=== PATIENT | female | born 1995 | race Caucasian/White ===

== ENCOUNTER 2016-11-06 07:05 | Emergency (ER) | payer BC ==
[2016-11-06 07:18] VITALS: BP 152/73
--- NOTE | 2016-11-06 07:55 | UC ---
Ear Complaint HPI - HPI Summary HPI Summary: Sharp ear pain that started 2 days ago. Pain is constant 6/10 with sharp spikes increasing to 8-9/10. No radiation. No aggravating or alleviating factors. H/o recurrent ear infections as a child. - History of Current Complaint Chief Complaint: UCEar Stated Complaint: EAR ACHE Time Seen by Provider: 11/06/16 07:23 Hx Obtained From: Patient Hx Last Menstrual Period: 5 months ago Onset/Duration: Gradual Onset, Lasting Days - 2, Still Present, Worse Since Severity Initially: Moderate Severity Currently: Moderate Pain Intensity: 6 Aggravating Factors: Nothing Alleviating Factors: Nothing Associated Signs/Symptoms: Positive: Discharge - minimal clear/yellowish, Hearing Loss - slightly muffled - Allergies/Home Medications Allergies/Adverse Reactions: Allergies Allergy/AdvReac Type Severity Reaction Status Date / Time PEANUTS Allergy Mild Rash Uncoded 11/06/16 07:18 Home Medications: Home Medications Levothyroxine TAB* [Synthroid TAB*] 137 mcg PO DAILY 11/06/16 [History Confirmed 11/06/16] Omeprazole CAP* [Prilosec CAP* 20 MG] 20 mg PO BEDTIME 11/06/16 [History Confirmed 11/06/16] Topiramate TAB(*) [Topamax 25 MG tab] 50 mg PO BEDTIME 11/06/16 [History Confirmed 11/06/16] PMH/Surg Hx/FS Hx/Imm Hx - Additional Past Medical History Additional PMH: h/o tricuspid atresia Previously Healthy: Yes Endocrine History: Hypothyroidism - Surgical History Surgical History: Yes Surgery Procedure, Year, and Place: TRICUSPID ATRESIA - Family History Known Family History: Positive: Cardiac Disease, Hypertension - Social History Lives: With Family Alcohol Use: Weekly Substance Use Type: None Smoking Status (MU): Never Smoked Tobacco Review of Systems Constitutional: Negative Skin: Negative Eyes: Negative ENT: Ear Ache Respiratory: Cough - slight occasional Cardiovascular: Negative Gastrointestinal: Negative Musculoskeletal: Negative Neurological: Negative Psychological: Negative All Other Systems Reviewed And Are Negative: Yes Physical Exam Triage Information Reviewed: Yes Appearance: Well-Appearing, No Pain Distress, Obese Vital Signs: Initial Vital Signs Temp 97.6 F 11/06/16 07:10 Pulse 63 11/06/16 07:10 Resp 18 11/06/16 07:10 BP 152/73 11/06/16 07:10 Pulse Ox 98 11/06/16 07:10 Vital Signs Reviewed: Yes Eyes: Positive: Conjunctiva Clear. Negative: Discharge ENT: Positive: Hearing grossly normal, Pharynx normal, TM red, Other: - ear canal is noted to be edematous, erythematous. periorbital congestion, nasal mucosa pale boggy. Negative: Nasal congestion, Nasal drainage, TMs normal - highly scarred, redness noted, TM bulging, TM dull, Tonsillar swelling, Tonsillar exudate, Trismus, Muffled/hoarse voice Neck: Positive: Supple, Nontender, No Lymphadenopathy Respiratory: Positive: Lungs clear, Normal breath sounds, No respiratory distress, No accessory muscle use Cardiovascular: Positive: RRR, No Murmur Musculoskeletal Exam: Normal Neurological: Positive: Alert, Muscle Tone Normal Psychological: Positive: Age Appropriate Behavior Skin Exam: Normal Ear Complaint Course/Dx - Course Course Of Treatment: pt noted to have elevated bp, likely d/t pt's condition - Differential Dx/Diagnosis Differential Diagnosis/HQI/PQRI: Cerumen Impaction, Otitis Externa, Otitis Media , TMJ Syndrome, Trigeminal Nueralgia, URI, Other - serous otitis Provider Diagnoses: otitis extrena, otitis media, elevated bp withou dx of htn Discharge - Discharge Plan Condition: Stable Disposition: HOME Prescriptions: Amoxicillin PO (*) [Amoxicillin 500 MG CAP*] 500 mg PO Q12H #20 cap Ciproflox/Dexameth OTIC.SUSP* [Ciprodex OTIC.SUSP*] 1 drop LEFT EAR BID #1 btl Patient Education Materials: Otitis Externa (ED), Otitis Media (ED) Referrals: Matteo Schaefer MD [Primary Care Provider] - If Needed Additional Instructions: ANTIBIOTICS ARE NOT CURRENTLY INDICATED FOR YOUR CONDITION. HOWEVER, IF YOUR SYMPTOMS WORSEN OR PERSIST FOR OVER THE NEXT 2-3 DAYS, YOU CAN TAKE THE FOLLOWING MEDICATION: AMOXICILLIN: Amoxicillin is a member of the penicillin family. It covers the germs likely to cause ear, bronchial, and urinary infections better than plain penicillin. Amoxicillin can be taken without regard to meals. Nausea after taking the medication is rare, but can occur. Diarrhea can occur, particularly in small children. Vaginal yeast infections and oral thrush in infants are also common. Contact your physician if these problems occur. Allergy to penicillins is common. If you have had an allergic reaction to any drug of the penicillin family, you should never take any other penicillin. Notify your doctor at once if you develop hives, itching, swelling, faintness, or shortness of breath. Less serious side effects can include nausea or diarrhea. ANYTIME YOU TAKE AN ANTIBIOTIC, IT IS IMPORTANT TO REPLENISH THE BODY'S SUPPLY OF "GOOD BACTERIA." YOU CAN GET GOOD BACTERIA FROM HIGH QUALITY CULTURED FOODS SUCH LOCAL YOGURT, SOUR KRAUT, MADELINE BRICE, NATURALLY FERMENTED PICKLES AND PROBIOTIC DRINKS. YOU CAN ALSO GET GOOD BACTERIA FROM A PROBIOTIC SUPPLEMENT.
== END 2016-11-06 07:56 | disposition home or self-care (01) ==
LOC: UCCORT 07:05
DX: H60.90 Unspecified otitis externa, unspecified ear (principal); H66.90 Otitis media, unspecified, unspecified ear; R03.0 Elevated blood-pressure reading, without diagnosis of hypertension; Q22.4 Congenital tricuspid stenosis; E03.9 Hypothyroidism, unspecified; E66.9 Obesity, unspecified
CPT/HCPCS: 99212; G0463

== ENCOUNTER 2017-05-01 10:47 | Emergency (ER) | payer BC ==
[2017-05-01] MEDS ORDERED: Acetaminophen TAB* 325 MG PO ONE (13:18)
--- NOTE | 2017-05-01 13:28 | UC ---
FLU HPI - HPI Summary HPI Summary: since 04/29 evening- body aches, chills, throat pain, congestion, fever. + mild ear pain b/l, + sob with moving, coughing. no N/V. 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 - History of Current Complaint Chief Complaint: UCRespiratory Stated Complaint: FEVER, ACHES, ST, JOE. Time Seen by Provider: 05/01/17 13:10 Hx Obtained From: Patient Hx Last Menstrual Period: last year ?: No - partner with vasectomy Onset/Duration: Sudden Onset, Lasting Days Severity Currently: Moderate Severity Initially: Moderate Pain Intensity: 4 Pain Scale Used: 0-10 Numeric - Allergy/Home Medications Allergies/Adverse Reactions: Allergies Allergy/AdvReac Type Severity Reaction Status Date / Time PEANUTS Allergy Mild Rash Uncoded 05/01/17 13:11 Home Medications: Home Medications Aspirin/Acetaminophen/Caffeine [Excedrin Migraine Caplet] 1 each PO DAILY PRN [History Confirmed 05/01/17] PMH/Surg Hx/FS Hx/Imm Hx Previously Healthy: Yes - Surgical History Surgical History: Yes Surgery Procedure, Year, and Place: TRICUSPID ATRESIA - Family History Known Family History: Positive: Cardiac Disease, Hypertension - Social History Alcohol Use: Weekly Substance Use Type: None Smoking Status (MU): Never Smoked Tobacco Review of Systems Constitutional: Fever, Chills, Fatigue ENT: Sore Throat, Ear Ache, Nasal Discharge, Sinus Congestion Respiratory: Shortness Of Breath, Cough Is Patient Immunocompromised?: No All Other Systems Reviewed And Are Negative: Yes Physical Exam Triage Information Reviewed: Yes Appearance: No Pain Distress, Ill-Appearing - moderate Vital Signs: Initial Vital Signs Temp 103.1 F 05/01/17 13:13 Pulse 103 05/01/17 13:13 Resp 20 05/01/17 13:13 BP 155/98 05/01/17 13:13 Pulse Ox 98 05/01/17 13:13 Eyes: Positive: Conjunctiva Clear ENT: Positive: Pharyngeal erythema - minimal, Nasal congestion, TMs normal, Sinus tenderness - minimal. Negative: TM bulging, TM dull, TM red, Tonsillar swelling, Tonsillar exudate, Uvula midline Neck: Positive: Supple, Nontender, Enlarged Nodes @ - submand mild Respiratory: Positive: Lungs clear, Normal breath sounds, No respiratory distress, No accessory muscle use. Negative: Respiratory distress, Decreased breath sounds, Crackles, Rhonchi, Stridor, Wheezing Cardiovascular: Positive: No Murmur, Pulses Normal, Tachycardia - mild Abdomen Description: Positive: Nontender, No Organomegaly, Soft, Bruit. Negative: CVA Tenderness (R), CVA Tenderness (L) Neurological Exam: Normal Psychological Exam: Normal Flu Course/Dx - Course Course Of Treatment: rapid flu: + infl A. tamiflu, work note, OTC meds. increase lfuids - Differential Dx/Diagnosis Differential Diagnosis/HQI/PQRI: Bronchitis, Influenza, RSV Provider Diagnoses: influenza A Discharge - Discharge Plan Condition: Fair Disposition: HOME Prescriptions: Dextromethorphan/Benzocaine [Cepacol Sorethroat-Cough Corinne] 1 each PO Q6HR #30 lozenge Oseltamivir CAP* [Tamiflu CAP*] 75 mg PO BID #10 cap Patient Education Materials: Influenza (ED) Forms: *Work Release Referrals: Matteo Schaefer MD [Primary Care Provider] - Additional Instructions: - Incrase fluid intake - FOllow up with primary if no decrease in symptoms within 2-3 days - over the counter medication for symptoms- motrin/ tylenol, cough medication - THroat lozenges - Tamiflu as directed
[2017-05-01 13:52] VITALS: BP 147/90
== END 2017-05-01 13:54 | disposition home or self-care (01) ==
LOC: UCCORT 10:47
DX: J10.1 Influenza due to other identified influenza virus with other respiratory manifestations (principal)
CPT/HCPCS: 87502; 99212; A9270-GY; G0463

== ENCOUNTER 2018-06-30 10:42 | Emergency (ER) | payer BC ==
[2018-06-30 10:53] VITALS: BP 167/113
== END 2018-06-30 12:13 | disposition left against medical advice (07) ==
LOC: ED 10:42
DX: Z53.21 Procedure and treatment not carried out due to patient leaving prior to being seen by health care provider (principal)

== ENCOUNTER 2018-08-05 19:57 | Emergency (ER) | payer BC ==
--- OUTSIDE RECORDS SUMMARY | 2018-08-05 21:30 | XMS REPORT | Continuity of Care Document ---
:1995 External Reference #:[id number] Author Name Tre Perez NP Address [address] [place] [address] Care Team Providers Name Role Phone Tre Perez NP Care Team Information Service Director Unavailable Payers Date Identification Numbers Payment Provider Subscriber Policy Number: [id number] [facility] [employer] Group Number: [id number] [address] PayID: [id number] [place] [address] Problems Active Problems Provider Date Hypothyroidism Tre Perez NP Onset: 05/11/2017 Peptic reflux disease Tre Perez NP Onset: 05/11/2017 Family History Date Family Member(s) Observation Comments Father Good Health Mother Good Health First Brother Good Health Second Brother Good Health First Sister Good Health Second Sister Good Health Social History Type Date Description Comments Sex Unknown Marital Status Occupation Nurse ETOH Use Occasionally consumes alcohol Tobacco Use Start: Unknown Patient has never smoked Recreational Drug Use Denies Drug Use Allergies, Adverse Reactions, Alerts Active Allergies Reaction Severity Comments Date Peanuts Contact dermatitis 05/11/2017 Medications Active Medications SIG Qnty Indications Ordering Date Provider Nuvaring as directed 1units Z30.09 Chris, 06/24/2018 MAURO Eddy 0.12-0.015mg/24HR Ring Fluoxetine HCL (PMDD) 1 tabs by mouth 90caps Chris, 04/05/2018 every morning MAURO Eddy 10mg Capsules Levothyroxine Sodium 1 by mouth every 90tabs [facility], 05/11/2017 day MAURO Eddy 137mcg Tablets Omeprazole 1 by mouth twice 60caps [facility], 05/11/2017 20mg Capsules a day MAURO Eddy DR History Medications Out Of Work tomorrow 06/27/18 K21.9 Chris, 06/26/2018 - Misc MAURO Eddy 08/02/2018 Atovaquone-Proguanil 1 take by mouth 18tabs Yessenia, 03/25/2018 - HCL tablet with food Kip Boyce MD 06/24/2018 250-100mg Tablets or milk start 1 day before leaving take every day until back in states 1 week Azithromycin 1 by mouth every 3tabs Yessenia, 03/25/2018 - 500mg day x 3daysprn Kip Boyce MD 06/24/2018 Tablets sevre diarrhea may stop earleir if diarrhea goes away Amoxicillin/Clavulan 1 by mouth twice 20tabs L03.116 Chris, 01/29/2018 - ate Potassium a day MAURO Eddy 01/31/2018 875-125mg Tablets Ra Wart Remover wash affected 9.800ml Chris, 07/03/2017 - 17% area, warm MAURO Eddy 03/25/2018 Solution compress x 5 minutes apply with toothpick to affected areas 2 times a day for 12 weeks Immunizations CPT Code Status Date Vaccine Lot # [id number] Given 03/25/2018 Typhoid Vaccine Live,Oral [id number] 28577 Given 03/25/2018 Hepatitis A Vaccine, Adult Dosage [id number] 35526 Given 01/07/2018 Afluria Or Fluvirin Flu Vac Intramuscular 38859 Given 07/03/2017 Tdap (Boostrix)tetanus, diptheria toxoid & [id number] acellular pertussis 00560 Given 07/03/2017 Gardasil-9 (HPV) Nonavalent 2-3 Dose Schedule Im [id number] 99958 Given 12/18/2016 Afluria Or Fluvirin Flu Vac Intramuscular 67924 Given 07/20/2005 Immunization Td 7 Yrs Or Older [id number] Refused 07/03/2017 Gardasil-9 (HPV) Nonavalent 2-3 Dose Schedule Im Vital Signs Date Vital Result Comment 08/02/2018 2:02pm Body Temperature 97.8 F Weight 266.00 lb Heart Rate 77 /min BP Systolic 128 mmHg BP Diastolic 72 mmHg Respiratory Rate 16 /min Height 63.5 inches 5'3.50" O2 % BldC Oximetry 92 % BMI (Body Mass Index) 46.4 kg/m2 06/26/2018 11:45am Body Temperature 97.6 F Weight 276.00 lb Heart Rate 91 /min BP Systolic 138 mmHg BP Diastolic 82 mmHg Respiratory Rate 18 /min Height 64.4 inches 5'4.40" BMI (Body Mass Index) 46.8 kg/m2 06/24/2018 2:02pm Body Temperature 96.6 F Weight 268.00 lb Heart Rate 60 /min BP Systolic 138 mmHg BP Diastolic 78 mmHg Respiratory Rate 17 /min O2 % BldC Oximetry 93 % 04/05/2018 12:56pm Weight 273.00 lb BP Systolic 198 mmHg BP Diastolic 84 mmHg BP Systolic Recheck 170 mmHg BP Diastolic Recheck 100 mmHg 03/25/2018 11:14am Body Temperature 97.1 F Weight 269.00 lb Heart Rate 73 /min BP Systolic 132 mmHg BP Diastolic 90 mmHg Height 64.25 inches 5'4.25" O2 % BldC Oximetry 95 % BMI (Body Mass Index) 45.8 kg/m2 01/31/2018 11:53am Body Temperature 98.3 F Weight 270.00 lb Heart Rate 56 /min BP Systolic 124 mmHg BP Diastolic 72 mmHg Respiratory Rate 17 /min Height 64 inches 5'4" BMI (Body Mass Index) 46.3 kg/m2 01/29/2018 12:47pm Body Temperature 97.4 F Weight 264.00 lb Heart Rate 63 /min BP Systolic 136 mmHg BP Diastolic 82 mmHg Respiratory Rate 16 /min Height 64 inches 5'4" BMI (Body Mass Index) 45.3 kg/m2 01/14/2018 2:13pm Body Temperature 96.3 F Weight 264.00 lb Heart Rate 76 /min BP Systolic 120 mmHg BP Diastolic 74 mmHg Height 64 inches 5'4" BMI (Body Mass Index) 45.3 kg/m2 08/10/2017 7:58am Body Temperature 97.8 F Weight 260.00 lb Heart Rate 66 /min BP Systolic 130 mmHg BP Diastolic 80 mmHg Height 64.25 inches 5'4.25" O2 % BldC Oximetry 94 % BMI (Body Mass Index) 44.3 kg/m2 07/03/2017 9:44am Body Temperature 98.1 F Weight 254.00 lb Heart Rate 80 /min BP Systolic 128 mmHg BP Diastolic 84 mmHg Height 64.25 inches 5'4.25" O2 % BldC Oximetry 98 % BMI (Body Mass Index) 43.3 kg/m2 Urine Dipstick - Blood NEGATIVE Urine Dipstick - Protein NEGATIVE Urine Dipstick - Glucose NEGATIVE Urine Dipstick - Leukocytes NEGATIVE 05/11/2017 4:07pm Weight 254.00 lb BP Systolic 132 mmHg BP Diastolic 84 mmHg Height 64.25 inches 5'4.25" BMI (Body Mass Index) 43.3 kg/m2 Results Test Date Facility Test Result H/L Range Note Laboratory test 08/02/2018 [facility] Pap-RL <pending> finding Laboratory test 06/24/2018 [facility] TSH 1.66 uIU/mL 0.35-4.94 finding Laboratory test 11/15/2017 [facility] TSH 4.26 uIU/mL 0.35-4.94 finding Hepatitis Prof 07/16/2017 [facility] Hepatitis B S Ag NEGATIVE (Neg) 1 Acute-RL @ Hep. B Core Igm @ NEGATIVE (Neg) Hepatitis A AB Igm @ NEGATIVE (Neg) Hepatitis C AB @ NEGATIVE (Neg) 2 PTH,Intact W/ CA -RL 07/12/2017 [facility] PTH, Intact @ 24.1 pg/mL (12-65 ) Calcium @ 10.5 mg/dL High (8.4-10.2) 3 Hepatic Panel (LFT) 07/12/2017 [facility] Total Protein 8.3 g/dL High 6.0- 8.0 Albumin 5.4 g/dL High 3.6-4.9 Total Bilirubin 1.0 mg/dL 0.1-1.3 Direct Bilirubin 0.2 mg/dL 0.0-0.4 Alkaline Phosphatase 79 U/L 24-140 Alt 112 U/L High 3-42 Ast 65 U/L High 8-42 Laboratory test 07/03/2017 [facility] Pap SEE NOTE 4 finding Laboratory test 07/03/2017 [facility] 5 finding [phone] Allia <SEE NOTE> Affirm 07/03/2017 [facility] Trichomonas Negative Negative Vaginalis Gardnerella Vaginalis Negative Negative Kelly Species Negative Negative GC/Chlamydia By Dna 07/03/2017 [facility] Chlamydia by Dna NEGATIVE Negative Probe Probe GC by Dna Probe NEGATIVE Negative Laboratory test finding 07/03/2017 [facility] Vitamin D 25 28 ng/mL Low 30- 100 6 Hydroxy Iron Panel 07/03/2017 [facility] Iron, Total 147 g/dL 50-170 Transferrin 361.0 mg/dL 203.0-362.0 Tibc (calc) 505 g/dL High 261-478 % Iron Saturation 29.1 % 13.0-45.0 Laboratory test finding 07/03/2017 [facility] Vitamin B12 808 pg/mL 180- 914 Lipid 07/03/2017 [facility] Cholesterol 206 mg/dL High 50-199 Triglycerides 140 mg/dL 30-200 HDL 47 mg/dL 35-85 7 Chol/ HDL Ratio 4.4 ratio 3.7-5.6 VLDL 28 mg/dL 2-29 LDL (Calc) 131 mg/dL High 20-99 8 Comprehensive Met Panel-FCMG 07/03/2017 [facility] Sodium 135 mmol/L 135- 146 9 Potassium 3.8 mmol/L 3.5-5.2 Chloride# 102 mmol/L 97-110 10 Carbon Dioxide 23 mmol/L Low 24-34 Glucose 78 mg/dL 70-105 BUN 9 mg/dL 6-26 Creatinine 0.4 mg/dL Low 0.5-1.4 Calcium 10.5 mg/dL High 8.5-10.2 Total Protein 8.1 g/dL High 6.0-8.0 Albumin 5.3 g/dL High 3.6-4.9 Globulin 2.8 g/dL 2.0-3.5 A/G Ratio 1.9 Ratio 1.0-2.2 Total Bilirubin 1.6 mg/dL High 0.1-1.3 Alkaline Phosphatase 67 U/L 24-140 Alt 162 U/L High 3-42 Ast 127 U/L High 8-42 Keely Egfr >60 >60 11 Non Keely Egfr >60 >60 12 Anion Gap 10 mmol/L 5-15 13 Laboratory test finding 07/03/2017 [facility] TSH 4.26 uIU/mL 0.35-4.94 CBC with Auto Diff-fcmg 07/03/2017 [facility] WBC 8.4 K/uL 4.1-11.0 RBC 4.95 M/uL 4.00-5.40 Hemoglobin 14.9 gm/dL 12.0-16.0 Hematocrit 43.5 % 36.0-47.0 MCV 88.0 fL 80.0-97.0 MCH 30.1 pg 27.0-32.0 MCHC 34.3 g/dL 32.0-36.0 RDW 14.0 % 11.5-14.5 PLT Count 193 K/ul 140-400 MPV 9.5 FL 7.1-10.7 Neutrophil 63.8 % 35.0-75.0 Lymphocyte 28.4 % 16.0-52.0 Monocyte 6.1 % 2.0-10.0 Eosinophil 1.1 % 0.0-5.0 Basophil 0.6 % 0.0-4.0 Abs Neutrophils 5.3 K/uL 2.1-8.0 Abs Lymphocytes 2.4 K/uL 0.8-5.5 Abs Monocytes 0.5 K/uL 0.1-1.0 Abs Eosinophils 0.1 K/uL 0.0-0.5 Abs Basophils 0.1 K/uL 0.0-0.3 Laboratory test finding 05/11/2017 [facility] TSH 1.97 uIU/mL 0.35-4.94 1 Specimen collected at 16:01 on 07/16/17. Specimen received at [facility] Clinical Laboratory on 07/17/17 at 11:29. Specimen received unspun. 2 NOT INFECTED WITH HCV, UNLESS RECENT INFECTION IS SUSPECTED OR OTHER EVIDENCE EXISTS TO INDICATE HCV INFECTION. Unless otherwise specified, testing performed by [facility] [address] [place] [id number] 3 Unless otherwise specified, testing performed by [facility] [address] [address] 4 [facility]. [address] [place] [address] CYTOLOGY REPORT Source of Specimen(s): [facility] Vaginal Pap Smear - One Vial Date of Last Menstrual Period: None Provided Other Clinical Conditions: HPV ASSAY REQUESTED Specimen Adequacy SATISFACTORY FOR EVALUATION PRESENCE OF ENDOCERVICAL/TRANSFORMATION ZONE COMPONENT General Categorization NEGATIVE FOR INTRAEPITHELIAL LESION OR MALIGNANCY Interpretation NEGATIVE FOR INTRAEPITHELIAL LESION OR MALIGNANCY Comment HPV testing will be performed and a separate report will be issued. Reported: 07/05/2017 09:20 Electronically Signed Out By Klely AMARO(ASCP) saúl ICD9 Code: Z01.419 CPT code: A: VC198HCH Unless otherwise specified, testing performed by [facility] [address] [address] 5 [facility] [address] [address] Amplified Molecular High Risk HPV Test Patient Name:RORO TELLO Patient :1995 Ordering Physician:TRE PEREZ [facility] Accession Number [id number] Specimen(s) Received A: High Risk HPV SP Vaginal Pap Smear - One Vial Other Case Numbers: [id number] Diagnosis RISK GROUPS RESULTS High Risk NEGATIVE Tested for HPV Types (16, 18, 31, 33, 35, 39, 45, 51, 52, 56, 58, 59, 66, 68) Comments The performance characteristics of the [facility] residual specimen tested for this assay were validated by [facility] and licensed for use by the [facility]. This test has not been licensed by the FDA and the result is not intended to be used as the sole means for clinical diagnosis or patient management. Negative results do not rule out the presence of disease. Reported: 07/06/2017 07:44 Electronically Signed Out By Altagracia Mclaughlin eng Ilene Darling 6 Clinical Guidelines for recommended serum 25(OH)Vitamin D Deficient at less than 20 ng/mL Insufficient at 20 to <30 ng/mL Sufficient at 30-100 ng/mL Toxicity at greater than 100 ng/mL 7 Per NCEP ATP III Guidelines: Results lower than 40 mg/dL are suggestive of increased risk for coronary artery disease. Results > or=to 60 mg/dL are considered a negative risk factor. 8 Per NCEP ATP III Guidelines: Normal Population <130 Patients with medical conditions: CHD/DM Optimal: <100 Borderline high: 130-159 High: 160-189 Very high: >189 9 Updated reference range on new analyzer 10 Updated reference range on new analyzer 11 Concerning GFR Guidelines for Americans: Normal function or mild renal disease, if clinically at risk: >/=60 mL/min Moderately decreased: 30-59 Severely decreased: 15-29 Renal failure: <15 12 Concerning GFR Guidelines: Normal function or mild renal disease, if clinically at risk: >/=60 mL/min Moderately decreased: 30-59 Severely decreased: 15-29 Renal failure: <15 Glomerular Filtration Rate (GFR) is estimated based on the MDRD equation, which assumes a steady state for creatinine as recommended by the National Kidney Disease Education Program in conjunction with the National Institutes of Health and the National Kidney Foundation. Clinical conditions in which it may be necessary to measure GFR by using clearance methods include extremes of age and body size, severe malnutrition or obesity, diseases of skeletal muscle, paraplegia or quadriplegia, vegetarian diet, rapidly changing kidney function, and calculation of the dose of potentially toxic drugs that are excreted by the kidneys. 13 Updated Reference Range 2-2017 Procedures Date Code Description Status 07/03/2017 [address] Screening Hearing Test Completed Encounters Type Date Location Provider Dx Diagnosis Office Visit 06/26/2018 Tre Moe NP E66.01 Morbid (severe) 11:45a obesity due to excess calories K21.9 Gastro-esophageal reflux disease without esophagitis Z68.42 Body mass index (BMI) 45.0-49.9, adult Office Visit 06/24/2018 2:00p Tre Moe, Z30.09 Encounter for oth BIOMED TECH general coun and advice on contraception E03.9 Hypothyroidism, unspecified Office Visit 04/05/2018 1:00p Tre Moe, F33.1 Major depressive BIOMED TECH disorder, recurrent, moderate Office Visit 01/31/2018 11:45a Tre Moe, S80.912A Unspecified BIOMED TECH superficial injury of LEFT knee, init encntr Z68.42 Body mass index (BMI) 45.0-49.9, adult Office Visit 01/29/2018 12:15p Tre Moe, S81.012A Laceration without BIOMED TECH foreign body, LEFT knee, init encntr L03.116 Cellulitis of LEFT lower limb Z68.42 Body mass index (BMI) 45.0-49.9, adult Office Visit 01/14/2018 2:00p Tre Moe, G47.00 Insomnia, unspecified BIOMED TECH R11.0 Nausea R45.4 Irritability and anger Z68.42 Body mass index (BMI) 45.0-49.9, adult Office Visit 08/10/2017 8:20a Osorio Holt, G47.33 Obstructive sleep MD Alberta Hernandez NP apnea (adult) (pediatric) Office Visit 07/03/2017 9:15a Radha Perez Z00.00 Encntr for general Tre, BIOMED TECH adult medical exam w/o abnormal findings E03.9 Hypothyroidism, unspecified Z13.220 Encounter for screening for lipoid disorders R53.82 Chronic fatigue, unspecified Z68.41 Body mass index (BMI) 40.0-44.9, adult B07.8 Other viral warts Z11.3 Encntr screen for infections w sexl mode of transmiss Z23 Encounter for immunization Office Visit 05/11/2017 4:00p Tre Moe, E03.9 Hypothyroidism, BIOMED TECH unspecified Z13.29 Encounter for screening for oth suspected endocrine disorder
[2018-08-05 21:35] VITALS: BP 156/81
--- NOTE | 2018-08-05 21:49 | UC ---
Complaint Female HPI - HPI Summary HPI Summary: 22-year-old female presents with onset of dysuria yesterday. Today started with some right flank pain. She is also noted some mild vaginal itching. Denies fever, chills, abdominal pain, nausea, vomiting, frequency, urgency, hematuria, vaginal discharge, or abnormal bleeding. - History Of Current Complaint Chief Complaint: UCGU Stated Complaint: BLADDER/URINARY Time Seen by Provider: 08/05/18 21:45 Hx Obtained From: Patient Hx Last Menstrual Period: 07/29/18 Pain Intensity: 4 - Allergies/Home Medications Allergies/Adverse Reactions: Allergies Allergy/AdvReac Type Severity Reaction Status Date / Time PEANUTS Allergy Mild Rash Uncoded 08/05/18 21:35 Home Medications: Home Medications FLUoxetine CAP* [PROzac CAP*] 10 mg PO DAILY 08/05/18 [History Confirmed ] PMH/Surg Hx/FS Hx/Imm Hx Endocrine History: Hypothyroidism GI/ History: Gastroesophageal Reflux Neurological History: Migraine Psychological History: Depression - Surgical History Surgical History: Yes Surgery Procedure, Year, and Place: TRICUSPID ATRESIA - Family History Known Family History: Positive: Cardiac Disease, Hypertension - Social History Occupation: Employed Full-time Lives: With Family Alcohol Use: Rare Substance Use Type: None Smoking Status (MU): Never Smoked Tobacco Review of Systems All Other Systems Reviewed And Are Negative: Yes Constitutional: Negative: Fever, Chills Skin: Negative: Rash Respiratory: Negative: Shortness Of Breath, Cough Cardiovascular: Negative: Palpitations, Chest Pain Gastrointestinal: Negative: Abdominal Pain, Vomiting, Diarrhea, Nausea Genitourinary: Positive: Dysuria, Vaginal/Penile Itching. Negative: Hematuria, Frequency, Urgency, Vaginal/Penile Burning, Vaginal/Penile Discharge, Ulceration /Lesion, Abnormal Bleeding Musculoskeletal: Positive: Negative Neurological: Positive: Negative Is Patient Immunocompromised?: No Physical Exam - Summary Physical Exam Summary: GENERAL APPEARANCE: Well developed, well nourished, alert and cooperative, and appears to be in no acute distress. CARDIAC: Normal S1 and S2. No S3, S4 or murmurs. Rhythm is regular. There is no peripheral edema, cyanosis or pallor. Extremities are warm and well perfused. Capillary refill is less than 2 seconds. Peripheral pulses intact. LUNGS: Clear to auscultation without rales, rhonchi, wheezing or diminished breath sounds. ABDOMEN: Positive bowel sounds. Soft, nondistended, nontender. No guarding or rebound. No masses or hepatosplenomegally. No CVA tenderness. MUSKULOSKELETAL: ROM intact to all extremities. No joint erythema or tenderness. Normal muscular development. Normal gait. SKIN: Skin normal color, texture and turgor with no lesions or eruptions. Triage Information Reviewed: Yes Vital Signs: Initial Vital Signs Temp 97.6 F 08/05/18 21:31 Pulse 92 08/05/18 21:31 Resp 18 08/05/18 21:31 BP 156/81 08/05/18 21:31 Pulse Ox 96 08/05/18 21:31 Vital Signs Reviewed: Yes Complaint Female Dx - Course Course Of Treatment: 22-year-old female presents with onset of dysuria yesterday. Today started with some right flank pain. She is also noted some mild vaginal itching. Denies fever, chills, abdominal pain, nausea, vomiting, frequency, urgency, hematuria, vaginal discharge, or abnormal bleeding. Afebrile. Hypertensive his vital signs stable. The exam was overall unremarkable. [id number] urinalysis showed 2+ protein and 1+ bilirubin and otherwise normal. Urine negative. Urine culture is pending. Discussed results with the patient and offered empiric treatment for UTI pending the urine culture results or waiting for culture results for treating and she has elected for the latter. I will start her on Pyridium 100 mg 3 times a day 2 days to help with the discomfort. First dose was given in the clinic. She is to follow-up with her primary care provider in 3 days if symptoms do not improve. Anticipatory guidance warning symptoms reviewed with the patient. Verbalizes understanding and agrees care. - Differential Dx/Diagnosis Differential Diagnosis/HQI/PQRI: Pelvic Inflammatory Disease, , Renal Colic, Urinary Tract Infection Provider Diagnosis: Dysuria Discharge - Sign-Out/Discharge Documenting (check all that apply): Patient Departure All imaging exams completed and their final reports reviewed: No Studies - Discharge Plan Condition: Stable Disposition: HOME Prescriptions: Phenazopyridine TAB* [Pyridium 100 mg TAB*] 100 mg PO TID #5 tab Patient Education Materials: Dysuria (ED) Referrals: Esther Perez NP [Primary Care Provider] - 3 Days Additional Instructions: Your urine test in the clinic today did not show any evidence of a urinary tract infection. We will send a urine culture today to see what bacteria grow out and then start you on an antibiotic if appropriate. It may take 48-72 hours to get these results. Take Pyridium 1 tablet every 8 hours for next 2 days to help with the discomfort. This medication will turn your urine an orange color. We gave you the first dose in the clinic. Drink plenty of fluids. To help prevent urinary tract infections: 1) Be sure to wipe from front to back. 2) Urinate immediately after any sexual intercourse. 3) Avoid taking bubble baths. Follow up with your primary care provider in 3 days if symptoms persist. Seek immediate medical attention in the emergency room if you develop fever greater than 100.5 F, have severe abdominal pain, persistent vomiting, or any worsening of symptoms. - Billing Disposition and Condition Condition: STABLE Disposition: Home - Attestation Statements Provider Attestation: Per institutional requirements, I have reviewed the chart, however, I was not consulted specifically or made aware of this patient by the midlevel provider. I did not personally evaluate, interact with , or disposition this patient.
[2018-08-05] MEDS ORDERED: Phenazopyridine TAB* 100 MG PO ONE (22:08)
== END 2018-08-05 22:15 | disposition home or self-care (01) ==
LOC: UCCORT 19:57
DX: R30.0 Dysuria (principal); F32.9 Major depressive disorder, single episode, unspecified; Z79.899 Other long term (current) drug therapy
CPT/HCPCS: 81003; 84702; 87086; 99212; A9270-GY; G0463

== ENCOUNTER 2019-02-12 20:11 | Emergency (ER) | payer BC ==
[2019-02-12 21:22] LABS: ABS Basophils 0.1 10^3/ul (0-0.2); ABS Eosinophils 0.1 10^3/ul (0-0.6); ABS Lymphocytes 2.2 10^3/ul (1.0-4.8); ABS Monocytes 0.5 10^3/ul (0-0.8); ABS Neutrophils 4.3 10^3/ul (1.5-7.7); Eosinophil % 1.7 %; Hematocrit 41 % (35-47); Hemoglobin 13.8 g/dL (12.0-16.0); Lymphocyte % 30.9 %; Mean Corpuscular HGB Conc 34 g/dL (31-36); Mean Corpuscular Hemoglobin 30 pg (27-31); Mean Corpuscular Volume 87 fL (80-97); Mean Platelet Volume 8.9 fL (7.4-10.4); Platelet Count 178 10^3/uL (150-450); Red Blood Count 4.66 10^6 /uL (3.70-4.87); Red Cell Distribution Width 15 % (10-15); White Blood Count 7.2 10^3/uL (3.5-10.8)
[2019-02-12 21:39] LABS: Albumin 4.8 g/dL (3.2-5.2); Albumin/Globulin Ratio 1.5 (1-3); Calcium 10.5 mg/dL (8.6-10.3); EGFR African American 181.9 (>60); EGFR Non-African American 150.3 (>60); Globulin 3.3 g/dL (2-4); Magnesium 1.8 mg/dL (1.9-2.7); Potassium 3.9 mmol/L (3.5-5.0); Total Bilirubin 0.6 mg/dL (0.2-1.0); Total Protein 8.1 g/dL (6.4-8.9)
[2019-02-12 21:45] LABS: HCG Pregnancy 1.2 mIU/mL
--- NOTE | 2019-02-12 21:48 | ED ---
Palpitations / Dysrhythmia - HPI Summary HPI Summary: Patient is a 23 year old female who presents with palpitations that started at 20:00 tonight. 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 She put herself on the heart monitor and noticed she was having premature atrial contractions, so she came down to the ED. She also admits to being lightheaded. Has been feeling fatigue for the last couple of days. 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 Follows up yearly with field marketing lead at [place], has appointment in March. no recent travel. not on control. No family history of blood clots. No pain or swelling or calf muscles. - History of Current Complaint Chief Complaint: EDDysrhythmPalp Time Seen by Provider: 02/12/19 20:55 - Allergy/Home Medications Allergies/Adverse Reactions: Allergies Allergy/AdvReac Type Severity Reaction Status Date / Time PEANUTS Allergy Mild Rash Uncoded 02/12/19 20:27 PMH/Surg Hx/FS Hx/Imm Hx Endocrine/Hematology History: Reports: Hx Thyroid Disease - hypo Denies: Hx Diabetes Cardiovascular History: 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 Denies: Hx Hypertension Respiratory History: Denies: Hx Asthma, Hx Chronic Obstructive Pulmonary Disease (COPD) GI History: Denies: Hx Ulcer Neurological History: Reports: Other Neuro Impairments/Disorders - HX OF MIGRAINES - Surgical History Surgery Procedure, Year, and Place: TRICUSPID ATRESIA Infectious Disease History: No Infectious Disease History: Denies: Hx Hepatitis, Hx Human Immunodeficiency Virus (HIV), Traveled Outside the [place] in Last 30 Days - Family History Known Family History: Positive: Cardiac Disease, Hypertension - Social History Alcohol Use: Rare Substance Use Type: Reports: None Smoking Status (MU): Never Smoked Tobacco Review of Systems Constitutional: Negative Eyes: Negative ENT: Negative Positive: Palpitations Positive: Shortness Of Breath Positive: Nausea Genitourinary: Negative Musculoskeletal: Negative Skin: Negative Neurological: Negative Psychological: Normal All Other Systems Reviewed And Are Negative: Yes Physical Exam Triage Information Reviewed: Yes Vital Signs On Initial Exam: Initial Vitals Temp Pulse Resp BP Pulse Ox 98.0 F 90 16 122/74 95 02/12/19 20:15 02/12/19 20:15 02/12/19 20:15 02/12/19 20:15 02/12/19 20:15 Vital Signs Reviewed: Yes Appearance: Positive: Well-Appearing, No Pain Distress, Well-Nourished Skin: Positive: Warm, Skin Color Reflects Adequate Perfusion, Dry Head/Face: Positive: Normal Head/Face Inspection Eyes: Positive: Normal, EOMI, DENNY ENT: Positive: Normal ENT inspection Neck: Positive: Supple, Nontender Respiratory/Lung Sounds: Positive: Clear to Auscultation, Breath Sounds Present Cardiovascular: Positive: Normal, RRR, S1, S2 Abdomen Description: Positive: Nontender, Soft Bowel Sounds: Positive: Present Pelvic Exam: Positive: No Masses Musculoskeletal: Positive: Normal Neurological: Positive: Normal Psychiatric: Positive: Normal, Affect/Mood Appropriate Procedures - Sedation Patient Received Moderate/Deep Sedation with Procedure: No Diagnostics - Vital Signs Vital Signs Temp Pulse Resp BP Pulse Ox 02/12/19 21:04 79 17 200/117 94 02/12/19 21:00 79 21 94 02/12/19 20:15 98.0 F 90 16 122/74 95 - Laboratory Lab Results: Lab Results 02/12/19 02/12/19 Range/Units 21:09 21:10 WBC 7.2 (3.5-10.8) 10^3/uL RBC 4.66 (3.70-4.87) 10^6 /uL Hgb 13.8 (12.0-16.0) g/dL Hct 41 (35-47) % MCV 87 (80-97) fL MCH 30 (27-31) pg MCHC 34 (31-36) g/dL RDW 15 (10-15) % Plt Count 178 (150-450) 10^3/uL MPV 8.9 (7.4-10.4) fL Neut % (Auto) 59.8 % Lymph % (Auto) 30.9 % [place] % (Auto) 6.7 % Eos % (Auto) 1.7 % Baso % (Auto) 0.9 % Absolute Neuts (auto) 4.3 (1.5-7.7) 10^3/ul Absolute Lymphs (auto) 2.2 (1.0-4.8) 10^3/ul Absolute Monos (auto) 0.5 (0-0.8) 10^3/ul Absolute Eos (auto) 0.1 (0-0.6) 10^3/ul Absolute Basos (auto) 0.1 (0-0.2) 10^3/ul Absolute Nucleated RBC 0.0 10^3/ul Nucleated RBC % 0.0 Sodium 136 (135-145) mmol/L Potassium 3.9 (3.5-5.0) mmol/L Chloride 104 (101-111) mmol/L Carbon Dioxide 24 (22-32) mmol/L Anion Gap 8 (2-11) mmol/L BUN 10 (6-24) mg/dL Creatinine 0.50 L (0.51-0.95) mg/dL Est GFR ( Amer) 181.9 (>60) Est GFR (Non-Af Amer) 150.3 (>60) BUN/Creatinine Ratio 20.0 (8-20) Glucose 104 H (70-100) mg/dL Calcium 10.5 H (8.6-10.3) mg/dL Magnesium 1.8 L (1.9-2.7) mg/dL Total Bilirubin 0.60 (0.2-1.0) mg/dL AST 116 H (13-39) U/L ALT 115 H (7-52) U/L Alkaline Phosphatase 77 (34-104) U/L Troponin I 0.00 (<0.03) ng/mL Total Protein 8.1 (6.4-8.9) g/dL Albumin 4.8 (3.2-5.2) g/dL Globulin 3.3 (2-4) g/dL Albumin/Globulin Ratio 1.5 (1-3) Beta HCG, Quant Pending Result Diagrams: 02/12/19 21:09 02/12/19 21:10 Lab Statement: Any lab studies that have been ordered have been reviewed, and results considered in the medical decision making process. - EKG No standard instances Cardiac Rate: NL EKG Rhythm: Sinus Rhythm EKG Comparison: No Significant Change Summary of EKG Findings: sinus rhythm Re-Evaluation - Re-Evaluation First Eval Re-Evaluation Time: 22:34 Change: Improved Comment: feeling better, bp is 135/85 Course/Dx - Course Course Of Treatment: 23 year old female who presnets with new onset of palpitations, SOB, and nausea. History of tricuspid atresia, follows up w cardiology yearly. EKG shows sinus rhythm. strip that patient brought shows PACs. wbc normal. h/h normal. electrolytes normal except for mg of 1.8 which is nonsignificant. bp came down while in ED without meds. will discharge to have follow up with primary. patient understand and agrees with plan. - Diagnoses Differential Diagnosis/HQI/PQRI: Positive: Coronary Artery Disease, Hypokalemia , Panic Disorder Provider Diagnoses: Palpitations Discharge ED - Sign-Out/Discharge Documenting (check all that apply): Patient Departure - Discharge Plan Condition: Good Disposition: HOME Patient Education Materials: Heart Palpitations (ED) Referrals: Odalys Joyce MD [Primary Care Provider] - Additional Instructions: follow up with primary within 5 days Return to ED if develop any new or worsening symptoms - Billing Disposition and Condition Condition: GOOD Disposition: Home
[2019-02-12 22:49] VITALS: BP 135/75
--- OUTSIDE RECORDS SUMMARY | 2019-02-18 14:17 | XMS REPORT | Continuity of Care Document ---
:1995 External Reference #:[id number] Author Name Odalys Joyce MD Address [address] [place] [address] Problems Active Problems Provider Date Hypothyroidism Onset: 02/26/2017 Depressive disorder Onset: 01/22/2015 Social History Type Date Description Comments Sex Unknown Allergies, Adverse Reactions, Alerts Active Allergies Reaction Severity Comments Date Peanut Rash Mild 01/06/2019 Medications Active Medications SIG Qnty Indications Ordering Provider Date Omeprazole oral; take one 90caps Odalys Joyce, 01/13/2018 20mg Capsules capsule by mouth MD WEEKS every day Blood Pressure N/A 1units Unknown 07/06/2016 Kit/Oscillating/Digita l Kit Levothyroxine Sodium 1 daily oral 90tabs Odalys Dunhamt, 01/28/2016 137mcg Tablets Prozac take 1 by mouth 30caps Odalys [place], 10mg Capsules daily Medications Administered in Office Medication SIG Qnty Indications Ordering Provider Date TB Intradermal Test Unknown 04/11/2016 Injection TB Intradermal Test Unknown 04/04/2016 Injection TB Intradermal Test Unknown 10/12/2014 Injection TB Intradermal Test Unknown 10/27/2013 Injection Meningococcal Conjugate Vaccine Unknown 09/17/2013 (Menveo) Injection TB Intradermal Test Unknown 09/17/2013 Injection Immunizations CPT Code Status Date Vaccine Lot # [id number] Given 01/06/2019 Flu < 65 years [id number] 17654 Given 04/04/2016 Influenza Virus Vaccine, Quadrivalent, Split Virus, Im Use 0.5ML 00841 Given 04/04/2016 Flu < 65 years 68484 Given 04/04/2016 Influenza Virus Vaccine, Quadrivalent, Split, Preservative Free 09958 Given 04/04/2016 Flumist 96836 Given 04/04/2016 Flu High Dose 92416 Given 04/04/2016 Influenza Virus Vaccine, Split, Preserv Free, Intradermal Use 95675 Given 03/19/2015 Varicella (Chicken Pox) Vaccine 73922 Given 12/17/2014 Flu High Dose 44696 Given 12/17/2014 Flumist 82128 Given 12/17/2014 Influenza Virus Vaccine, Quadrivalent, Split, Preservative Free 46647 Given 12/17/2014 Flu < 65 years 31982 Given 12/17/2014 Influenza Virus Vaccine, Quadrivalent, Split, Im Use 0.25ML 62650 Given 12/17/2014 Influenza Virus Vaccine, Quadrivalent, Split, Im Use 0.25ML 72131 Given 12/17/2014 Influenza Virus Vaccine, Quadrivalent, Split, Im Use 0.25ML 91259 Given 09/17/2013 HPV Vaccine Type 6,11,16,18 3 Dose Schedule Intramuscular Use 95949 Given 09/17/2013 HPV Gardasil 9 32024 Given 09/17/2013 Tdap - Boostrix/Adacel 74688 Given 09/17/2013 Mening Acwy - Menveo/Menactra 79090 Given 03/24/2013 HPV Gardasil 9 12360 Given 03/24/2013 HPV Gardasil 9 05161 Given 03/24/2013 HPV Vaccine Type 6,11,16,18 3 Dose Schedule Intramuscular Use 51177 Given 11/21/2012 Hep A Adult for >18 yrs Havrix/Vaqta 54060 Given 11/21/2012 HPV Vaccine Type 6,11,16,18 3 Dose Schedule Intramuscular Use 15056 Given 11/21/2012 HPV Gardasil 9 36943 Given 11/21/2012 HPV Gardasil 9 17034 Given 11/21/2012 Typhoid Vaccine Vicps Intramuscular 28862 Given 04/29/2012 Hep A Peds for <19yrs Havrix/Vaqta 42104 Given 04/29/2012 Hep A Adult for >18 yrs Havrix/Vaqta 24706 Given 01/27/2008 Varicella (Chicken Pox) Vaccine 36947 Given 01/27/2008 Influenza Virus Vaccine, Quadrivalent, Split, Im Use 0.25ML 36747 Given 01/27/2008 Influenza Virus Vaccine Split Virus Intramuscular Use 0.5ML 03614 Given 07/20/2005 Mening Acwy - Menveo/Menactra 36498 Given 07/20/2005 Tdap - Boostrix/Adacel 39505 Given 07/20/2005 DTaP for <7yrs Infanrix/Daptacel 51832 Refused 04/29/2012 Influenza Virus Vaccine, Quadrivalent, Split, Im Use 0.25ML Vital Signs Date Vital Result Comment 01/06/2019 2:03pm BP Systolic 138 mmHg BP Diastolic 80 mmHg Height 64.75 inches 5'4.75" Weight 284.00 lb Heart Rate 93 /min Body Temperature 97.6 F O2 % BldC Oximetry 95 % BMI (Body Mass Index) 47.6 kg/m2 Results Test Acquired Date Facility Test Result H/L Range Note CBC Auto 02/12/2019 [facility] White Blood 7.2 10^3/uL Normal 3.5-10.[address] [place] [address] [phone] Red Blood Count 4.66 10^6/uL Normal 3.70-4.87 Hemoglobin 13.8 g/dL Normal 12.0-16.0 Hematocrit 41 % Normal 35-47 Mean Corpuscular Volume 87 fL Normal 80-97 Mean Corpuscular Hemoglobin 30 pg Normal 27-31 Mean Corpuscular HGB Conc 34 g/dL Normal 31-36 Red Cell Distribution Width 15 % Normal 10-15 Platelet Count 178 10^3/uL Normal 150-450 Mean Platelet Volume 8.9 fL Normal 7.4-10.4 Abs Neutrophils 4.3 10^3/uL Normal 1.5-7.7 Abs Lymphocytes 2.2 10^3/uL Normal 1.0-4.8 Abs Monocytes 0.5 10^3/uL Normal 0-0.8 Abs Eosinophils 0.1 10^3/uL Normal 0-0.6 Abs Basophils 0.1 10^3/uL Normal 0-0.2 Abs Nucleated RBC 0.0 10^3/uL Granulocyte % 59.8 % Lymphocyte % 30.9 % Monocyte % 6.7 % Eosinophil % 1.7 % Basophil % 0.9 % Nucleated Red Blood Cells % 0.0 Comp Metabolic 02/12/2019 [facility] Sodium 136 mmol/L Normal 135-[address] [place] [address] [phone] Potassium 3.9 mmol/L Normal 3.5-5.0 Chloride 104 mmol/L Normal 101-111 Co2 Carbon Dioxide 24 mmol/L Normal 22-32 Anion Gap 8 mmol/L Normal 2-11 Glucose 104 mg/dL High 70-100 Blood Urea Nitrogen 10 mg/dL Normal 6-24 Creatinine 0.50 mg/dL Low 0.51-0.95 BUN/Creatinine Ratio 20.0 Normal 8-20 Calcium 10.5 mg/dL High 8.6-10.3 Total Protein 8.1 g/dL Normal 6.4-8.9 Albumin 4.8 g/dL Normal 3.2-5.2 Globulin 3.3 g/dL Normal 2-4 Albumin/Globulin Ratio 1.5 Normal 1-3 Total Bilirubin 0.60 mg/dL Normal 0.2-1.0 Alkaline Phosphatase 77 U/L Normal 34-104 Alt 115 U/L High 7-52 Ast 116 U/L High 13-39 Egfr Non- 150.3 >60 Egfr 181.9 >60 1 Laboratory test 02/12/2019 [facility] Magnesium 1.8 mg/dL Low 1.9-2.[address] [place] [address] [phone] Troponin-I (TnI) 0.00 ng/mL <0.03 2 HCG 1.20 mIU/mL 3 Lactic Acid 1.5 mmol/L Normal 0.5-2.0 4 Laboratory 02/12/2019 [facility] Point of Care 97 mg/dL Normal 70-100 5 test finding [address] [place] [address] [phone] Laboratory 01/21/2019 [facility] TSH (Thyroid 0.63 Normal 0.34 -5.60 test finding [address] Stim Horm) mcIU/[place] [address] [phone] Lipid Profile 01/21/2019 [facility] Triglycerides 213 6 (Trig/Chol/HDL [address] mg/dL ) [place], [place] [id number] [phone] Cholesterol 206 mg/dL 7 HDL Cholesterol 36.9 mg/dL 8 LDL Cholesterol 127 mg/dL 9 Basic Metabolic 01/21/2019 [facility] Sodium 137 mmol/L Normal 135-[address] [place] [address] [phone] Potassium 4.3 mmol/L Normal 3.5-5.0 Chloride 105 mmol/L Normal 101-111 Co2 Carbon Dioxide 25 mmol/L Normal 22-32 Anion Gap 7 mmol/L Normal 2-11 Glucose 85 mg/dL Normal 70-100 Blood Urea Nitrogen 7 mg/dL Normal 6-24 Creatinine 0.46 mg/dL Low 0.51-0.95 BUN/Creatinine Ratio 15.2 Normal 8-20 Calcium 9.9 mg/dL Normal 8.6-10.3 Egfr Non- 165.5 >60 Egfr 200.3 >60 10 1 Because ethnic data is not always readily available, this report includes an eGFR for both -Americans and non- Americans. The National Kidney Disease Education Program (NKDEP) does not endorse the use of the MDRD equation for patients that are not between the ages of 18 and 70, are , have extremes of body size, muscle mass, or nutritional status, or are non- or non-. According to the National Kidney Foundation, irrespective of diagnosis, the stage of the disease is based on the level of kidney function: Stage Description GFR(mL/min/1.73 m(2)) 1 Kidney damage with normal or decreased GFR 90 2 Kidney damage with mild decrease in GFR 60-89 3 Moderate decrease in GFR 30-59 4 Severe decrease in GFR 15-29 5 Kidney failure <15 (or dialysis) 2 Troponin-I testing on Plasma Separator Tubes (PST) has a known false positive rate of 0.20-0.40%. All positive troponins reflex immediately to secondary confirmatory testing. Using the Cortex DxI 800 Access Immunoassay systems, the 99th percentile upper reference limit was demonstrated to be < 0.03 ng/mL. 3 <5.0 Negative 5.0 - 25.0 Indeterminate (Repeat testing recommended after 72 hours) >25.0 Positive Perimenopausal women can display HCG levels of up to 20 mIU/mL 4 [facility] Severe Sepsis and Septic Shock Management Bundle Measure requires all lactic acids initially measuring >2.0 mmol/L be repeated. 5 Curriculum Supervisor: [id number] 6 Desirable: <150 Borderline High: 150-199 High: 200-499 Very High: >500 7 Desirable: <200 Borderline High: 200-239 High: >239 8 Low: <40 Desirable: 40-60 High: >60 9 Desirable: <100 Near Optimal: 100-129 Borderline High: 130-159 High: 160-189 Very High: >189 10 Because ethnic data is not always readily available, this report includes an eGFR for both -Americans and non- Americans. The National Kidney Disease Education Program (NKDEP) does not endorse the use of the MDRD equation for patients that are not between the ages of 18 and 70, are , have extremes of body size, muscle mass, or nutritional status, or are non- or non-. According to the National Kidney Foundation, irrespective of diagnosis, the stage of the disease is based on the level of kidney function: Stage Description GFR(mL/min/1.73 m(2)) 1 Kidney damage with normal or decreased GFR 90 2 Kidney damage with mild decrease in GFR 60-89 3 Moderate decrease in GFR 30-59 4 Severe decrease in GFR 15-29 5 Kidney failure <15 (or dialysis) Procedures Date Code Description Status 01/06/2019 94077 Brief Emotional/Behav Assessment W/ Scoring Doc Per Completed Standard Inst Medical Devices Description No Information Available Encounters Type Date Location Provider Dx Diagnosis Office Visit 01/06/2019 2:00p [facility] Odalys Joyce MD M25.562 Pain in left knee E03.9 Hypothyroidism, unspecified Z00.00 Encntr for general adult medical exam w/o abnormal findings Z13.220 Encounter for screening for lipoid disorders Z13.1 Encounter for screening for diabetes mellitus Z13.31 Encounter for screening for depression Z68.42 Body mass index (BMI) 45.0-49.9, adult Z23 Encounter for immunization Assessments Date Code Description Provider 01/06/2019 M25.562 Pain in left knee Odalys Joyce MD 01/06/2019 E03.9 Hypothyroidism, unspecified Odalys Joyce MD 01/06/2019 Z00.00 Encounter for general adult medical examination Odalys Joyce MD without abnormal findings 01/06/2019 Z13.220 Encounter for screening for lipoid disorders Odalys Joyce MD 01/06/2019 Z13.1 Encounter for screening for diabetes mellitus Odalys Joyce MD 01/06/2019 Z13.31 Encounter for screening for depression Odalys Joyce MD 01/06/2019 Z68.42 Body mass index (BMI) 45.0-49.9, adult Odalys Joyce MD 01/06/2019 Z23 Encounter for immunization Odalys Joyce MD Plan of Treatment 01/06/2019 - Odalys Joyce, MDM25.562 Pain in left kneeNew Orders:Physical Therapy Evaluate And Treat, Ordered: 01/06/19E03.9 Hypothyroidism, [id number] Encounter for general adult medical examination without abnormal aosqlxivK10.220 Encounter for screening for lipoid qqhgnlhlxO81.1 Encounter for screening for diabetes ownzoxqiZ14.31 Encounter for screening for aeponluamcJ02.42 Body mass index (BMI) 45.0-49.9, [id number] Encounter for immunization Functional Status Description No Information Available Mental Status Description No Information Available Referrals Description No Information Available
--- OUTSIDE RECORDS SUMMARY | 2019-02-18 14:17 | XMS REPORT | Continuity of Care Document ---
:1995 External Reference #:[id number] Author Name Odalys Joyce MD Address [address] [place] [address] Problems Active Problems Provider Date Hypothyroidism Onset: 02/26/2017 Depressive disorder Onset: 01/22/2015 Social History Type Date Description Comments Sex Unknown Allergies, Adverse Reactions, Alerts Active Allergies Reaction Severity Comments Date Peanut Rash Mild 01/06/2019 Medications Active Medications SIG Qnty Indications Ordering Provider Date Omeprazole Oral; Take One 30caps Unknown 01/13/2018 20mg Capsules Capsule By Mouth DR Every Day Blood Pressure N/A 1units Unknown 07/06/2016 Kit/Oscillating/Digita l Kit Levothyroxine Sodium 1 Daily Oral 90tabs Unknown 01/28/2016 137mcg Tablets Prozac Unknown Medications Administered in Office Medication SIG Qnty Indications Ordering Provider Date TB Intradermal Test Unknown 04/11/2016 Injection TB Intradermal Test Unknown 04/04/2016 Injection TB Intradermal Test Unknown 10/12/2014 Injection TB Intradermal Test Unknown 10/27/2013 Injection Meningococcal Conjugate Vaccine Unknown 09/17/2013 (Menveo) Injection TB Intradermal Test Unknown 09/17/2013 Injection Immunizations CPT Code Status Date Vaccine Lot # [id number] Given 01/06/2019 Flu < 65 years [id number] 31234 Given 04/04/2016 Influenza Virus Vaccine, Quadrivalent, Split Virus, Im Use 0.5ML 25959 Given 04/04/2016 Flu < 65 years 23494 Given 04/04/2016 Influenza Virus Vaccine, Quadrivalent, Split, Preservative Free 89266 Given 04/04/2016 Flumist 24354 Given 04/04/2016 Flu High Dose 95849 Given 04/04/2016 Influenza Virus Vaccine, Split, Preserv Free, Intradermal Use 37280 Given 03/19/2015 Varicella (Chicken Pox) Vaccine 17939 Given 12/17/2014 Flu High Dose 69607 Given 12/17/2014 Flumist 54827 Given 12/17/2014 Influenza Virus Vaccine, Quadrivalent, Split, Preservative Free 73565 Given 12/17/2014 Flu < 65 years 18042 Given 12/17/2014 Influenza Virus Vaccine, Quadrivalent, Split, Im Use 0.25ML 13329 Given 12/17/2014 Influenza Virus Vaccine, Quadrivalent, Split, Im Use 0.25ML 70569 Given 12/17/2014 Influenza Virus Vaccine, Quadrivalent, Split, Im Use 0.25ML 98315 Given 09/17/2013 HPV Vaccine Type 6,11,16,18 3 Dose Schedule Intramuscular Use 50009 Given 09/17/2013 HPV Gardasil 9 00279 Given 09/17/2013 Tdap - Boostrix/Adacel 18641 Given 09/17/2013 Mening Acwy - Menveo/Menactra 70738 Given 03/24/2013 HPV Gardasil 9 03043 Given 03/24/2013 HPV Gardasil 9 89052 Given 03/24/2013 HPV Vaccine Type 6,11,16,18 3 Dose Schedule Intramuscular Use 56993 Given 11/21/2012 Hep A Adult for >18 yrs Havrix/Vaqta 47676 Given 11/21/2012 HPV Vaccine Type 6,11,16,18 3 Dose Schedule Intramuscular Use 34327 Given 11/21/2012 HPV Gardasil 9 69142 Given 11/21/2012 HPV Gardasil 9 28755 Given 11/21/2012 Typhoid Vaccine Vicps Intramuscular 80787 Given 04/29/2012 Hep A Peds for <19yrs Havrix/Vaqta 49461 Given 04/29/2012 Hep A Adult for >18 yrs Havrix/Vaqta 26595 Given 01/27/2008 Varicella (Chicken Pox) Vaccine 47378 Given 01/27/2008 Influenza Virus Vaccine, Quadrivalent, Split, Im Use 0.25ML 30360 Given 01/27/2008 Influenza Virus Vaccine Split Virus Intramuscular Use 0.5ML 29915 Given 07/20/2005 Mening Acwy - Menveo/Menactra 80278 Given 07/20/2005 Tdap - Boostrix/Adacel 57754 Given 07/20/2005 DTaP for <7yrs Infanrix/Daptacel 95995 Refused 04/29/2012 Influenza Virus Vaccine, Quadrivalent, Split, Im Use 0.25ML Vital Signs Date Vital Result Comment 01/06/2019 2:03pm BP Systolic 138 mmHg BP Diastolic 80 mmHg Height 64.75 inches 5'4.75" Weight 284.00 lb Heart Rate 93 /min Body Temperature 97.6 F O2 % BldC Oximetry 95 % BMI (Body Mass Index) 47.6 kg/m2 Results Description No Information Available Procedures Date Code Description Status 01/06/2019 97106 Brief Emotional/Behav Assessment W/ Scoring Doc Per Completed Standard Inst Medical Devices Description No Information Available Encounters Description No Information Available Assessments Date Code Description Provider 01/06/2019 M25.562 Pain in left knee Odalys Joyce MD 01/06/2019 E03.9 Hypothyroidism, unspecified Odalys Joyce MD 01/06/2019 Z00.00 Encounter for general adult medical examination Odalys Joyce MD without abnormal findings 01/06/2019 Z13.220 Encounter for screening for lipoid disorders Odalys Joyce MD 01/06/2019 Z13.1 Encounter for screening for diabetes mellitus Odalys Joyce MD 01/06/2019 Z68.42 Body mass index (BMI) 45.0-49.9, adult Odalys Joyce MD Plan of Treatment 01/06/2019 - Odalys Joyce MDM25.562 Pain in left kneeNew Orders:Physical Therapy Evaluate And Treat, Ordered: 01/06/19E03.9 Hypothyroidism, unspecifiedNew Labs:TSH (Thyroid Stim Horm), Ordered: 01/06/19Z00.00 Encounter for general adult medical examination without abnormal caebletkY91.220 Encounter for screening for lipoid disordersNew Labs:Lipid Profile (Trig/Chol/ HDL), Ordered: 01/06/19Z13.1 Encounter for screening for diabetes mellitusNew Labs:Basic Metabolic Panel, Ordered: 01/06/19Z68.42 Body mass index (BMI) 45.0- 49.9, adult Functional Status Description No Information Available Mental Status Description No Information Available Referrals Description No Information Available
== END 2019-02-12 22:35 | disposition home or self-care (01) ==
LOC: ED 20:11
DX: R00.2 Palpitations (principal); E03.9 Hypothyroidism, unspecified; Q24.5 Malformation of coronary vessels
CPT/HCPCS: 36415; 80053; 83605; 83735; 84484; 84702; 85025; 93005; 99283

== ENCOUNTER 2019-05-05 17:10 | Emergency (ER) | payer BC ==
--- NOTE | 2019-05-05 17:32 | ED ---
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 Patient reports seeing today who suggested that she report to [facility] for a full work up. The patient rates the pain 5/10 in severity. Symptoms aggravated by movement. Symptoms alleviated by nothing. - History Of Current Complaint Chief Complaint: EDAbdPain Time Seen by Provider: 05/05/19 17:24 Hx Obtained From: Patient Onset/Duration: Lasting Hours, Still Present Timing: Constant Character: Sharp - "stabbing" pains during breaths Aggravating Factor(s): movement Alleviating Factor(s): nothing Associated Signs And Symptoms: Positive: Abdominal Pain - RUQ, Other - Pain in diaphragm area when breathing - Allergies/Home Medications Allergies/Adverse Reactions: Allergies Allergy/AdvReac Type Severity Reaction Status Date / Time peanut Allergy Mild Rash Verified 05/05/19 17:16 PMH/Surg Hx/FS Hx/Imm Hx Endocrine/Hematology History: Reports: Hx Thyroid Disease - hypo Denies: Hx Diabetes Cardiovascular History: 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 Denies: Hx Hypertension Respiratory History: Denies: Hx Asthma, Hx Chronic Obstructive Pulmonary Disease (COPD) GI History: Reports: Hx Gastroesophageal Reflux Disease Denies: Hx Ulcer History: Denies: Hx Dialysis Sensory History: Denies: Hx Contacts or Glasses, Hx Eye Prosthesis, Hx Legally Blind, Hx Deafness, Hx Hearing Aid Opthamlomology History: Denies: Hx Contacts or Glasses, Hx Eye Prosthesis, Hx Legally Blind Neurological History: Reports: Hx Migraine, Other Neuro Impairments/Disorders - HX OF MIGRAINES Psychiatric History: Reports: Hx Depression - Surgical History Surgical History: Yes Surgery Procedure, Year, and Place: TRICUSPID ATRESIA. Gallbladder surgery, 2019, Infectious Disease History: No Infectious Disease History: Denies: Hx Hepatitis, Hx Human Immunodeficiency Virus (HIV), Traveled Outside the [place] in Last 30 Days - Family History Known Family History: Positive: Cardiac Disease, Hypertension - Social History Alcohol Use: Rare Substance Use Type: Reports: None Substance Use Comment - Amount & Last Used: rarely Smoking Status (MU): Never Smoked Tobacco Review of Systems Negative: Fever Musculoskeletal: Other - Pain in RUQ and diaphgram area upon movement and breathing respectively All Other Systems Reviewed And Are Negative: Yes Physical Exam - Summary Physical Exam Summary: Appearance: The patient is well-nourished in no acute distress and in no acute pain. Skin: The skin is warm and dry, and skin color reflects adequate perfusion. HEENT: The head is normocephalic and atraumatic. The pupils are equal and reactive. The conjunctivae are clear and without drainage. Nares are patent and without drainage. Mouth reveals moist mucous membranes, and the throat is without erythema and exudate. The external ears are intact. The ear canals are patent and without drainage. The tympanic membranes are intact. Neck: The neck is supple with full range of motion and non-tender. There are no carotid bruits. There is no neck vein distension. Respiratory: Chest is non-tender. Lungs are clear to auscultation and breath sounds are symmetrical and equal. Cardiovascular: Heart is regular rate and rhythm. There is no murmur or rub auscultated. There is no peripheral edema and pulses are symmetrical and equal. Abdomen: Tender in RUQ. Musculoskeletal: There is no back tenderness noted. Extremities are non-tender with full range of motion. There is good capillary refill. There is no peripheral edema or calf tenderness elicited. Neurological: Patient is alert and oriented to person, place and time. The patient has symmetrical motor strength in all four extremities. Cranial nerves are grossly intact. Deep tendon reflexes are symmetrical and equal in all four extremities. Psychiatric: The patient has an appropriate affect and does not exhibit any anxiety or depression. Triage Information Reviewed: Yes Vital Signs On Initial Exam: Initial Vitals Temp Pulse Resp BP Pulse Ox 97.7 F 84 19 155/104 94 05/05/19 17:13 05/05/19 17:13 05/05/19 17:13 05/05/19 17:13 05/05/19 17:13 Vital Signs Reviewed: Yes Procedures - Sedation Patient Received Moderate/Deep Sedation with Procedure: No Diagnostics - Vital Signs Vital Signs Temp Pulse Resp BP Pulse Ox 05/05/19 17: 97.7 F 84 19 155/104 94 - Laboratory Result Diagrams: 05/05/19 18:02 05/05/19 18:02 Lab Statement: Any lab studies that have been ordered have been reviewed, and results considered in the medical decision making process. - Ultrasound US Abd Ultrasound Interpretation Completed By: Radiologist Summary of Ultrasound Findings: IMPRESSION: Status post cholecystectomy. No acute process seen. has reviewed this report. Complex Multi-Symp Course/Dx Course Of Treatment: We are awaiting labs and CT to R/O any post op infection etc. - Diagnoses Provider Diagnoses: Post-operative pain Discharge ED - Sign-Out/Discharge Documenting (check all that apply): Sign-Out Patient - Sign out patient to at 05/05/2019 1900 pending consult and disposition. Signing out patient TO: Jefferson Araya - Discharge Plan Condition: Good Disposition: HOME Patient Education Materials: Acute Abdominal Pain (ED) Forms: *Work Release Referrals: Odalys Joyce MD [Primary Care Provider] - - Billing Disposition and Condition Condition: GOOD Disposition: Home - Attestation Statements Document Initiated by Scribe: No
--- OUTSIDE RECORDS SUMMARY | 2019-05-05 17:44 | XMS REPORT | Continuity of Care Document ---
:1993 External Reference #:[id number] Author Name Matteo Schaefer MD Address [address] [place] [id number] Problems Active Problems Provider Date Hypothyroidism Onset: 02/26/2017 Depressive disorder Onset: 01/22/2015 Social History Type Date Description Comments Sex Unknown Tobacco Use Start: Unknown Patient has never smoked Smoking Status Reviewed: 04/15/19 Patient has never smoked Allergies, Adverse Reactions, Alerts Active Allergies Reaction Severity Comments Date Peanut Rash Mild 01/06/2019 Medications Active Medications SIG Qnty Indications Ordering Provider Date Prozac 1 tab daily by 30adryan R00.2 NEPTALI Ca 02/20/2019 20mg Capsules mouth Omeprazole oral; take one 90caps Odalys Chamberlainholt, 01/13/2018 20mg Capsules capsule by mouth MD WEEKS every day Levothyroxine Sodium 1 daily oral 90tabs Odalys Joyce, 01/28/2016 137mcg Tablets Medications Administered in Office Medication SIG Qnty Indications Ordering Provider Date TB Intradermal Test Unknown 04/11/2016 Injection TB Intradermal Test Unknown 04/04/2016 Injection TB Intradermal Test Unknown 10/12/2014 Injection TB Intradermal Test Unknown 10/27/2013 Injection TB Intradermal Test Unknown 09/17/2013 Injection Immunizations CPT Code Status Date Vaccine Lot # [id number] Given 01/06/2019 Flu < 65 years [id number] 65343 Given 04/04/2016 Flu < 65 years 81221 Given 03/19/2015 Varicella (Chicken Pox) Vaccine 16834 Given 12/17/2014 Flu < 65 years 85643 Given 09/17/2013 Mening Acwy - Menveo/Menactra 78887 Given 09/17/2013 Tdap - Boostrix/Adacel 15510 Given 09/17/2013 HPV Vaccine Type 6,11,16,18 3 Dose Schedule Intramuscular Use 46746 Given 03/24/2013 HPV Vaccine Type 6,11,16,18 3 Dose Schedule Intramuscular Use 75149 Given 11/21/2012 Hep A Adult for >18 yrs Havrix/Vaqta 89665 Given 11/21/2012 HPV Vaccine Type 6,11,16,18 3 Dose Schedule Intramuscular Use 56029 Given 11/21/2012 Typhoid Vaccine Vicps Intramuscular 98338 Given 04/29/2012 Hep A Adult for >18 yrs Havrix/Vaqta 78882 Given 01/27/2008 Varicella (Chicken Pox) Vaccine 48191 Given 07/20/2005 Mening Acwy - Menveo/Menactra 01552 Given 07/20/2005 Tdap - Boostrix/Adacel 99876 Given 07/20/2005 DTaP for <7yrs Infanrix/Daptacel 52178 Refused 04/29/2012 Influenza Virus Vaccine, Quadrivalent, Split, Im Use 0.25ML Vital Signs Date Vital Result Comment 04/15/2019 2:58pm BP Systolic 140 mmHg BP Diastolic 84 mmHg Height 64.75 inches 5'4.75" Weight 172.00 lb Heart Rate 81 /min Body Temperature 97.7 F O2 % BldC Oximetry 94 % BMI (Body Mass Index) 28.8 kg/m2 03/26/2019 9:29am BP Systolic 116 mmHg BP Diastolic 88 mmHg Weight 280.00 lb Heart Rate 84 /min Body Temperature 97.1 F O2 % BldC Oximetry 94 % Results Test Acquired Date Facility Test Result H/L Range Note Urinalysis Profile 04/15/2019 [facility] Urine Color Yellow [address] [place] [address] [phone] Urine Appearance Clear Urine Specific [place] 1.014 Normal 1.010-1.030 Urine pH 5.0 Normal 5-9 Urine Urobilinogen Negative Negative Urine Ketones Trace Abnormal Negative Urine Protein 1+(30 mg/dL) Abnormal Negative Urine Leukocytes Negative Negative Urine Blood Negative Negative Urine Nitrite Negative Negative Urine Bilirubin Negative Negative Urine Glucose Negative Negative Urine White Blood Cell Trace(0-5/hpf) Absent Urine Red Blood Cell Absent Absent Urine Bacteria Absent Absent Urine Squamous Epithelial Cell Present Abnormal Absent CBC Auto 04/15/2019 [facility] White Blood 7.5 10^3/uL Normal 3.5-10.[address] [place] [address] [phone] Red Blood Count 5.02 10^6/uL High 3.70-4.87 Hemoglobin 15.2 g/dL Normal 12.0-16.0 Hematocrit 44 % Normal 35-47 Mean Corpuscular Volume 87 fL Normal 80-97 Mean Corpuscular Hemoglobin 30 pg Normal 27-31 Mean Corpuscular HGB Conc 35 g/dL Normal 31-36 Red Cell Distribution Width 15 % Normal 10-15 Platelet Count 200 10^3/uL Normal 150-450 Mean Platelet Volume 8.7 fL Normal 7.4-10.4 Abs Neutrophils 5.1 10^3/uL Normal 1.5-7.7 Abs Lymphocytes 1.8 10^3/uL Normal 1.0-4.8 Abs Monocytes 0.4 10^3/uL Normal 0-0.8 Abs Eosinophils 0.1 10^3/uL Normal 0-0.6 Abs Basophils 0.1 10^3/uL Normal 0-0.2 Abs Nucleated RBC 0.0 10^3/uL Granulocyte % 68.2 % Lymphocyte % 24.2 % Monocyte % 5.6 % Eosinophil % 0.9 % Basophil % 1.1 % Nucleated Red Blood Cells % 0.1 Laboratory test 04/15/2019 [facility] Lactic Acid 1.0 mmol/L Normal 0.5-2.[address] [place] [address] [phone] Comp Metabolic 04/15/2019 [facility] Sodium 135 mmol/L Normal 135-145 Panel [address] [place] [address] [phone] Potassium 4.0 mmol/L Normal 3.5-5.0 Chloride 102 mmol/L Normal 101-111 Co2 Carbon Dioxide 22 mmol/L Normal 22-32 Anion Gap 11 mmol/L Normal 2-11 Glucose 101 mg/dL High 70-100 Blood Urea Nitrogen 9 mg/dL Normal 6-24 Creatinine 0.56 mg/dL Normal 0.51-0.95 BUN/Creatinine Ratio 16.1 Normal 8-20 Calcium 10.3 mg/dL Normal 8.6-10.3 Total Protein 8.6 g/dL Normal 6.4-8.9 Albumin 4.8 g/dL Normal 3.2-5.2 Globulin 3.8 g/dL Normal 2-4 Albumin/Globulin Ratio 1.3 Normal 1-3 Total Bilirubin 1.40 mg/dL High 0.2-1.0 Alkaline Phosphatase 83 U/L Normal 34-104 Alt 78 U/L High 7-52 Ast 78 U/L High 13-39 Egfr Non- 131.9 >60 Egfr 159.6 >60 2 Laboratory test 04/15/2019 [facility] Lipase 11 U/L Normal 11.0-82.[address] [place] [address] [phone] C Reactive Protein 12.48 mg/L High <8.01 HCG 0.82 mIU/mL 3 CBC Auto 02/12/2019 [facility] White Blood 7.2 10^3/uL Normal 3.5-10.[address] [place] [address] [phone] Red Blood Count 4.66 10^6/uL Normal 3.70-4.87 [...] Blood Cells % 0.0 Comp Metabolic 02/12/2019 [facility] Sodium 136 mmol/L Normal 135-[address] [place] [address] [phone] Potassium 3.9 mmol/L Normal 3.5-5.0 Chloride 104 [...] Egfr Non- 150.3 >60 Egfr 181.9 >60 4 Laboratory test 02/12/2019 [facility] Magnesium 1.8 mg/dL Low 1.9-2.[address] [place] [address] [phone] Troponin-I (TnI) 0.00 ng/mL <0.03 5 HCG 1.20 mIU/mL 6 Lactic Acid 1.5 mmol/L Normal 0.5-2.0 7 Laboratory 02/12/2019 [facility] Point of Care 97 mg/dL Normal 70-100 8 test finding [address] [place] [address] [phone] Laboratory 01/21/2019 [facility] TSH (Thyroid 0.63 Normal 0.34 -5.60 test finding [address] Stim Horm) mcIU/mL [place], [place] [id number] [phone] Lipid Profile 01/21/2019 [facility] Triglycerides 213 9 (Trig/Chol/HDL [address] mg/dL ) [place], [place] [id number] [phone] Cholesterol 206 mg/dL 10 HDL Cholesterol 36.9 mg/dL 11 LDL Cholesterol 127 mg/dL 12 Basic Metabolic 01/21/2019 [facility] Sodium 137 mmol/L Normal 135-[address] [place], [place] [id number] [phone] Potassium 4.3 mmol/L Normal 3.5-5.0 Chloride 105 mmol/L Normal 101-111 Co2 Carbon Dioxide 25 mmol/L Normal 22-32 Anion Gap 7 mmol/L Normal 2-11 Glucose 85 mg/dL Normal 70-100 Blood Urea Nitrogen 7 mg/dL Normal 6-24 Creatinine 0.46 mg/dL Low 0.51-0.95 BUN/Creatinine Ratio 15.2 Normal 8-20 Calcium 9.9 mg/dL Normal 8.6-10.3 Egfr Non- 165.5 >60 Egfr 200.3 >60 13 1 [facility] Severe Sepsis and Septic Shock Management Bundle Measure requires all lactic acids initially measuring >2.0 mmol/L be repeated. 2 Because ethnic data is not always readily [...] 15-29 5 Kidney failure <15 (or dialysis) 3 <5.0 Negative 5.0 - 25.0 Indeterminate (Repeat testing recommended after 72 hours) >25.0 Positive Perimenopausal women can display HCG levels of up to 20 mIU/mL 4 Because ethnic data is not always readily [...] 15-29 5 Kidney failure <15 (or dialysis) 5 Troponin-I testing on Plasma Separator Tubes (PST) has a known false positive rate of 0.20-0.40%. All positive troponins reflex immediately to secondary confirmatory testing. Using the [employer] DxI Vizy Access Immunoassay systems, the 99th percentile upper reference limit was demonstrated to be < 0.03 ng/mL. 6 <5.0 Negative 5.0 - 25.0 Indeterminate (Repeat testing recommended after 72 hours) >25.0 Positive Perimenopausal women can display HCG levels of up to 20 mIU/mL 7 [facility] Severe Sepsis and Septic Shock Management Bundle Measure requires all lactic acids initially measuring >2.0 mmol/L be repeated. 8 Tower Cleaner: [id number] Desirable: <150 Borderline High: 150-199 High: 200-499 Very High: >500 10 Desirable: <200 Borderline High: 200-239 High: >239 11 Low: <40 Desirable: 40-60 High: >60 12 Desirable: <100 Near Optimal: 100-129 Borderline High: 130-159 High: 160-189 Very High: >189 13 Because ethnic data is not always readily [...] dialysis) Procedures Date Code Description Status 01/06/2019 88187 Brief Emotional/Behav Assessment W/ Scoring Doc Per Completed Standard Inst Medical Devices Description No Information Available Encounters Type Date Location Provider Dx Diagnosis Office Visit 04/15/2019 2:45p [facility] Matteo Schaefer MD R10.31 Right lower quadrant pain R11.10 Vomiting, unspecified R19.7 Diarrhea, unspecified Office Visit 03/26/2019 9:15a [facility] Michael Joyce MD R00.2 Palpitations F41.9 Anxiety disorder, unspecified Office Visit 02/27/2019 1:30p [facility] Marilu Hodge, CUSTOMER RELATIONS COORDINATOR R00.2 Palpitations Office Visit 02/20/2019 11:00a [facility] Marilu Hodge, CUSTOMER RELATIONS COORDINATOR R00.2 Palpitations Office Visit 01/06/2019 2:00p [facility] Odalys Joyce MD M25.562 Pain in left knee E03.9 Hypothyroidism, unspecified Z00.00 Encntr for general adult medical exam w/o abnormal findings Z13.220 Encounter for screening for lipoid disorders Z13.1 Encounter for screening for diabetes mellitus Z13.31 Encounter for screening for depression Z68.42 Body mass index (BMI) 45.0-49.9, adult Z23 Encounter for immunization Assessments Date Code Description Provider 04/15/2019 R10.31 Right lower quadrant pain Matteo Schaefer MD 04/15/2019 R11.10 Vomiting, unspecified Matteo Schaefer MD 04/15/2019 R19.7 Diarrhea, unspecified Matteo Schaefer MD 03/26/2019 R00.2 Palpitations Odalys Joyce MD 03/26/2019 F41.9 Anxiety disorder, unspecified Odalys Joyce MD 02/27/2019 R00.2 Palpitations Marilu Aittama, CUSTOMER RELATIONS COORDINATOR 02/20/2019 R00.2 Palpitations Marilu Aittakaylee, CUSTOMER RELATIONS COORDINATOR 01/06/2019 M25.562 Pain in left knee Odalys [...] Z68.42 Body mass index (BMI) 45.0-49.9, adult Odlays Joyce MD 01/06/2019 Z23 Encounter for immunization Odalys Joyce MD Plan of Treatment No Information Available Functional Status Description No Information Available Mental Status Description No Information Available Referrals Description No Information Available
--- OUTSIDE RECORDS SUMMARY | 2019-05-05 17:44 | XMS REPORT | Continuity of Care Document ---
:1993 External Reference #:[id number] Author Name Yosef Waddell MD (transmitted by agent of provider Magno Romano) Address [address] [place] [id number] Care Team Providers Name Role Phone Matteo Schaefer MD - Family Medicine Care Team Information Security Systems Manager Odalys Joyce M.D. - Family Care Team Information Security Systems Manager Medicine Problems Description No Information Available Social History Type Date Description Comments Sex Unknown ETOH Use Occasionally consumes alcohol Tobacco Use Start: Unknown Patient has never smoked Recreational Drug Use Denies Drug Use Smoking Status Reviewed: 04/24/19 Patient has never smoked Exercise Type/Frequency Exercises regularly Allergies, Adverse Reactions, Alerts Description No Known Drug Allergies Medications Active Medications SIG Qnty Indications Ordering Provider Date Omeprazole 1 by mouth Unknown 20mg Capsules DR every day Levothyroxine Sodium 1 by mouth Unknown 137mcg every day Tablets Fluoxetine HCL (PMDD) 1 by mouth Unknown 10mg every day Tablets History Medications Oxycodone-Acetaminophen 1 tabs by 8tavu Turcios, 04/21/2019 - 5-325mg Tablets mouth every 6 , FACS Unknown hours as needed for pain Immunizations Description No Information Available Vital Signs Date Vital Result Comment 04/24/2019 11:28am Height 64.25 inches 5'4.25" Weight 282.00 lb Heart Rate 68 /min BP Systolic 122 mmHg BP Diastolic 84 mmHg Respiratory Rate 16 /min Body Temperature 98.2 F BMI (Body Mass Index) 48.0 kg/m2 Results Description No Information Available Procedures Date Code Description Status 04/17/2019 16510 Laparoscopy Cholecystectomy Completed 03/04/2019 72000 Holter Monitor Review (24 hr)dr review & interp only Completed Medical Devices Description No Information Available Encounters Description No Information Available Assessments Date Code Description Provider 04/17/2019 K80.10 Calculus of gallbladder with chronic Yosef Waddell MD cholecystitis without obstruction 03/04/2019 R00.2 Palpitations Adair Urbano M.D. Plan of Treatment No Information Available Functional Status Description No Information Available Mental Status Description No Information Available Referrals Refer to Dr Reason for Referral Status Appt Date Bello Gomez M.D. [facility] [address] [place] [address] [phone]
--- OUTSIDE RECORDS SUMMARY | 2019-05-05 17:44 | XMS REPORT | Continuity of Care Document ---
:1995 External Reference #:[id number] Author Name Matteo Schaefer MD Address [address] [place] [id number] Problems Active Problems Provider Date Hypothyroidism Onset: [...] CPT Code Status Date Vaccine Lot # [id number] Given 01/06/2019 Flu < 65 years [id number] 22699 Given 04/04/2016 Flu < 65 years 19426 Given 03/19/2015 Varicella (Chicken Pox) Vaccine 96424 Given 12/17/2014 Flu < 65 years 75198 Given 09/17/2013 Mening Acwy - Menveo/Menactra 91542 Given 09/17/2013 Tdap - Boostrix/Adacel 65452 Given 09/17/2013 HPV Vaccine Type 6,11,16,18 3 Dose Schedule Intramuscular Use 81247 Given 03/24/2013 HPV Vaccine Type 6,11,16,18 3 Dose Schedule Intramuscular Use 07064 Given 11/21/2012 Hep A Adult for >18 yrs Havrix/Vaqta 78255 Given 11/21/2012 HPV Vaccine Type 6,11,16,18 3 Dose Schedule Intramuscular Use 76434 Given 11/21/2012 Typhoid Vaccine Vicps Intramuscular 72625 Given 04/29/2012 Hep A Adult for >18 yrs Havrix/Vaqta 48615 Given 01/27/2008 Varicella (Chicken Pox) Vaccine 09866 Given 07/20/2005 Mening Acwy - Menveo/Menactra 82173 Given 07/20/2005 Tdap - Boostrix/Adacel 75720 Given 07/20/2005 DTaP for <7yrs Infanrix/Daptacel 72391 Refused 04/29/2012 Influenza Virus Vaccine, Quadrivalent, Split, [...] Result H/L Range Note Urinalysis Profile 04/15/2019 [facility] Urine Color Yellow [address] [place] [address] [phone] Urine Appearance Clear Urine Specific [place] 1.014 Normal 1.010-1.030 Urine pH 5.0 Normal [...] Cell Present Abnormal Absent CBC Auto 04/15/2019 [facility] White Blood 7.5 10^3/uL Normal 3.5-10.[address] [place] [address] [phone] Red Blood Count 5.02 10^6/uL High 3.70-4.87 [...] Blood Cells % 0.1 Laboratory test 04/15/2019 [facility] Lactic Acid 1.0 mmol/L Normal 0.5-2.[address] [place] [address] [phone] Comp Metabolic 04/15/2019 [facility] Sodium 135 mmol/L Normal 135-145 Panel [address] [place] [address] [phone] Potassium 4.0 mmol/L Normal 3.5-5.0 Chloride 102 [...] Egfr 159.6 >60 2 Laboratory test 04/15/2019 [facility] Lipase 11 U/L Normal 11.0-82.[address] [place] [address] [phone] C Reactive Protein 12.48 mg/L High <8.01 HCG 0.82 mIU/mL 3 CBC Auto 02/12/2019 [facility] White Blood 7.2 10^3/uL Normal 3.5-10.[address] [place] [address] [phone] Red Blood Count 4.66 10^6/uL Normal 3.70-4.87 [...] Blood Cells % 0.0 Comp Metabolic 02/12/2019 [facility] Sodium 136 mmol/L Normal 135-[address] [place] [address] [phone] Potassium 3.9 mmol/L Normal 3.5-5.0 Chloride 104 [...] Egfr 181.9 >60 4 Laboratory test 02/12/2019 [facility] Magnesium 1.8 mg/dL Low 1.9-2.[address] [place] [address] [phone] Troponin-I (TnI) 0.00 ng/mL <0.03 5 HCG 1.20 mIU/mL 6 Lactic Acid 1.5 mmol/L Normal 0.5-2.0 7 Laboratory 02/12/2019 [facility] Point of Care 97 mg/dL Normal 70-100 8 test finding [address] [place] [address] [phone] Laboratory 01/21/2019 [facility] TSH (Thyroid 0.63 Normal 0.34 -5.60 test finding [address] Stim Horm) mcIU/mL [place], [place] [id number] [phone] Lipid Profile 01/21/2019 [facility] Triglycerides 213 9 (Trig/Chol/HDL [address] mg/dL ) [place], [place] [address] [phone] Cholesterol 206 mg/dL 10 HDL Cholesterol 36.9 mg/dL 11 LDL Cholesterol 127 mg/dL 12 Basic Metabolic 01/21/2019 [facility] Sodium 137 mmol/L Normal 135-[address] [place], [place] [address] [phone] Potassium 4.3 mmol/L Normal 3.5-5.0 Chloride 105 mmol/L Normal 101-111 Co2 Carbon Dioxide 25 mmol/L Normal 22-32 Anion Gap 7 mmol/L Normal 2-11 Glucose 85 mg/dL Normal 70-100 Blood Urea Nitrogen 7 mg/dL Normal 6-24 Creatinine 0.46 mg/dL Low 0.51-0.95 BUN/Creatinine Ratio 15.2 Normal 8-20 Calcium 9.9 mg/dL Normal 8.6-10.3 Egfr Non- 165.5 >60 Egfr 200.3 >60 13 1 [facility] Severe Sepsis and Septic Shock Management [...] immediately to secondary confirmatory testing. Using the [employer] D[employer] Access Immunoassay systems, the 99th percentile upper reference limit was demonstrated to be < 0.03 ng/mL. 6 <5.0 Negative 5.0 - 25.0 Indeterminate (Repeat testing recommended after 72 hours) >25.0 Positive Perimenopausal women can display HCG levels of up to 20 mIU/mL 7 [facility] Severe Sepsis and Septic Shock Management Bundle Measure requires all lactic acids initially measuring >2.0 mmol/L be repeated. 8 Supervisor Line Department: [id number] Desirable: <150 Borderline High: 150-199 High: [...] dialysis) Procedures Date Code Description Status 01/06/2019 04079 Brief Emotional/Behav Assessment W/ Scoring Doc Per [...] Visit 02/27/2019 1:30p [facility] Marilu Hodge, BANK GUARD R00.2 Palpitations Office Visit 02/20/2019 11:00a [facility] Main Marilu Hodge, BANK GUARD R00.2 Palpitations Office Visit 01/06/2019 2:00p CF [...] Joyce MD 02/27/2019 R00.2 Palpitations Marilu Aittama, BANK GUARD 02/20/2019 R00.2 Palpitations Marilu Aittakaylee, BANK GUARD 01/06/2019 M25.562 Pain in left knee Odalys [...]
--- OUTSIDE RECORDS SUMMARY | 2019-05-05 17:44 | XMS REPORT | Continuity of Care Document ---
:1995 External Reference #:[id number] Author Name Matteo Schaefer MD Address [address] [place] [id number] Problems Active Problems Provider Date Hypothyroidism Onset: [...] CPT Code Status Date Vaccine Lot # [id number] Given 01/06/2019 Flu < 65 years [id number] 45760 Given 04/04/2016 Flu < 65 years 84948 Given 03/19/2015 Varicella (Chicken Pox) Vaccine 05779 Given 12/17/2014 Flu < 65 years 28524 Given 09/17/2013 Mening Acwy - Menveo/Menactra 90817 Given 09/17/2013 Tdap - Boostrix/Adacel 58052 Given 09/17/2013 HPV Vaccine Type 6,11,16,18 3 Dose Schedule Intramuscular Use 82773 Given 03/24/2013 HPV Vaccine Type 6,11,16,18 3 Dose Schedule Intramuscular Use 45840 Given 11/21/2012 Hep A Adult for >18 yrs Havrix/Vaqta 47406 Given 11/21/2012 HPV Vaccine Type 6,11,16,18 3 Dose Schedule Intramuscular Use 83423 Given 11/21/2012 Typhoid Vaccine Vicps Intramuscular 71449 Given 04/29/2012 Hep A Adult for >18 yrs Havrix/Vaqta 49610 Given 01/27/2008 Varicella (Chicken Pox) Vaccine 72126 Given 07/20/2005 Mening Acwy - Menveo/Menactra 93460 Given 07/20/2005 Tdap - Boostrix/Adacel 88179 Given 07/20/2005 DTaP for <7yrs Infanrix/Daptacel 13565 Refused 04/29/2012 Influenza Virus Vaccine, Quadrivalent, Split, [...] Result H/L Range Note Urinalysis Profile 04/15/2019 [facility] Urine Color Yellow [address] [place] [address] [phone] Urine Appearance Clear Urine Specific [place] 1.014 Normal 1.010-1.030 Urine pH 5.0 Normal [...] Urine Squamous Epithelial Cell Present Abnormal Absent Urine Culture And 04/15/2019 [facility] Urine SEE RESULT [address] [place] [address] [phone] CBC Auto Diff 04/15/2019 [facility] White Blood 7.5 10^3/uL Normal 3.5-[address] 0[address]8 [place] [address] [phone] Red Blood Count 5.02 10^6/uL High 3.70-4.87 [...] Blood Cells % 0.1 Laboratory test 04/15/2019 [facility] Lactic Acid 1.0 mmol/L Normal 0.5-2.[address] [place] [address] [phone] Comp Metabolic 04/15/2019 [facility] Sodium 135 mmol/L Normal 135-[address] [place] [address] [phone] Potassium 4.0 mmol/L Normal 3.5-5.0 Chloride 102 [...] Egfr Non- 131.9 >60 Egfr 159.6 >60 3 Laboratory test 04/15/2019 [facility] Lipase 11 U/L Normal 11.0-82.[address] [place] [address] [phone] C Reactive Protein 12.48 mg/L High <8.01 HCG 0.82 mIU/mL 4 CBC Auto 02/12/2019 [facility] White Blood 7.2 10^3/uL Normal 3.5-10.[address] [place] [address] [phone] Red Blood Count 4.66 10^6/uL Normal 3.70-4.87 [...] Blood Cells % 0.0 Comp Metabolic 02/12/2019 [facility] Sodium 136 mmol/L Normal 135-[address] [place], [place] [address] [phone] Potassium 3.9 mmol/L Normal 3.5-5.0 Chloride 104 [...] Egfr Non- 150.3 >60 Egfr 181.9 >60 5 Laboratory test 02/12/2019 [facility] Magnesium 1.8 mg/dL Low 1.9-2.[address] [place], [place] [address] [phone] Troponin-I (TnI) 0.00 ng/mL <0.03 6 HCG 1.20 mIU/mL 7 Lactic Acid 1.5 mmol/L Normal 0.5-2.0 8 Laboratory 02/12/2019 [facility] Point of Care 97 mg/dL Normal 70-100 9 [address] [place], [place] [address] [phone] Laboratory 01/21/2019 [facility] TSH (Thyroid 0.63 Normal 0.34 -5.[address] Stim Horm) mcIU/mL [place], [place] [address] [phone] Lipid Profile 01/21/2019 [facility] Triglycerides 213 10 (Trig/Chol/HDL [address] mg/dL ) [place], [place] [address] [phone] Cholesterol 206 mg/dL 11 HDL Cholesterol 36.9 mg/dL 12 LDL Cholesterol 127 mg/dL 13 Basic Metabolic 01/21/2019 [facility] Sodium 137 mmol/L Normal 135-[address] [place], [place] [address] [phone] Potassium 4.3 mmol/L Normal 3.5-5.0 Chloride 105 mmol/L Normal 101-111 Co2 Carbon Dioxide 25 mmol/L Normal 22-32 Anion Gap 7 mmol/L Normal 2-11 Glucose 85 mg/dL Normal 70-100 Blood Urea Nitrogen 7 mg/dL Normal 6-24 Creatinine 0.46 mg/dL Low 0.51-0.95 BUN/Creatinine Ratio 15.2 Normal 8-20 Calcium 9.9 mg/dL Normal 8.6-10.3 Egfr Non- 165.5 >60 Egfr 200.3 >60 14 1 SEE RESULT BELOW Name: RORO TELLO : [address]: Fariha Brown MD Acct: [id number] Unit: [id number] AGE: 23 Location: [place] [address] Re04/15/19 SEX: F Status: ADM Lauri SPEC: [id number] NINOSKA: 04/15/19 [facility] [address]: Joaquin GUERRERO REQ: [id number] RECD: 04/15/19-2004 STATUS: LEDA DELEON DR: [facility] Matteo Joyce MD _ SOURCE: URINE SPDESC: ORDERED: Urine Culture Procedure Result Reported Site Urine Culture Final 04/17/19- 1010 ML No growth of clinically significant organisms * ML - Main Lab . END OF REPORT DEPARTMENT OF PATHOLOGY, [address] [place] [address] Tadeo Reid M.D. Director [facility] # [id number] 2 [facility] Severe Sepsis and Septic Shock Management Bundle Measure requires all lactic acids initially measuring >2.0 mmol/L be repeated. 3 Because ethnic data is not always readily [...] 15-29 5 Kidney failure <15 (or dialysis) 4 <5.0 Negative 5.0 - 25.0 Indeterminate (Repeat testing recommended after 72 hours) >25.0 Positive Perimenopausal women can display HCG levels of up to 20 mIU/mL 5 Because ethnic data is not always readily [...] 15-29 5 Kidney failure <15 (or dialysis) 6 Troponin-I testing on Plasma Separator Tubes (PST) has a known false positive rate of 0.20-0.40%. All positive troponins reflex immediately to secondary confirmatory testing. Using the [employer] DxI 800 Access Immunoassay systems, the 99th percentile upper reference limit was demonstrated to be < 0.03 ng/mL. 7 <5.0 Negative 5.0 - 25.0 Indeterminate (Repeat testing recommended after 72 hours) >25.0 Positive Perimenopausal women can display HCG levels of up to 20 mIU/mL 8 [facility] Severe Sepsis and Septic Shock Management Bundle Measure requires all lactic acids initially measuring >2.0 mmol/L be repeated. 9 Cco: [id number] Desirable: <150 Borderline High: 150-199 High: 200-499 Very High: >500 11 Desirable: <200 Borderline High: 200-239 High: >239 12 Low: <40 Desirable: 40-60 High: >60 13 Desirable: <100 Near Optimal: 100-129 Borderline High: 130-159 High: 160-189 Very High: >189 14 Because ethnic data is not always readily [...] dialysis) Procedures Date Code Description Status 01/06/2019 91399 Brief Emotional/Behav Assessment W/ Scoring Doc Per Completed [facility] Medical Devices Description No Information Available Encounters Type Date Location Provider Dx Diagnosis Office Visit 04/15/2019 2:45p CFGerhard Schaefer MD R10.31 Right lower quadrant pain R11.10 Vomiting, unspecified R19.7 Diarrhea, unspecified Office Visit 03/26/2019 9:15a Gerhard Joyce MD R00.2 Palpitations F41.9 Anxiety disorder, unspecified Office Visit 02/27/2019 1:30p NEPTALI Jennings R00.2 Palpitations Office Visit 02/20/2019 11:00a NEPTALI Jennings R00.2 Palpitations Office Visit 01/06/2019 2:00p Gerhard Joyce MD M25.562 Pain in left knee [...] Odalys Joyce MD 03/26/2019 F41.9 Anxiety disorder, kori Joyce MD 02/27/2019 R00.2 Palpitations NEPTALI Ca 02/20/2019 R00.2 Palpitations NEPTALI Ca 01/06/2019 M25.562 Pain in left knee Odalys [...]
[2019-05-05 18:00] LABS: Urine Appearance Cloudy; Urine Bilirubin Negative (Negative); Urine Blood 1+ (Negative); Urine Color Yellow; Urine Glucose Negative (Negative); Urine Ketones Negative (Negative); Urine Nitrite Negative (Negative); Urine Protein Negative (Negative); Urine Specific Gravity 1.006 (1.010-1.030); Urine Urobilinogen Negative (Negative)
[2019-05-05 18:12] LABS: Urine Bacteria Absent (Absent); Urine Red Blood Cell Absent (Absent); Urine Squamous Epithelial Cell Present (Absent); Urine White Blood Cell Absent (Absent)
[2019-05-05 18:31] LABS: ABS Basophils 0.1 10^3/ul (0-0.2); ABS Eosinophils 0.1 10^3/ul (0-0.6); ABS Lymphocytes 1.8 10^3/ul (1.0-4.8); ABS Monocytes 0.3 10^3/ul (0-0.8); ABS Neutrophils 4.1 10^3/ul (1.5-7.7); Hematocrit 40 % (35-47); Hemoglobin 13.5 g/dL (12.0-16.0); Lymphocyte % 28.8 %; Mean Corpuscular HGB Conc 34 g/dL (31-36); Mean Corpuscular Hemoglobin 30 pg (27-31); Mean Corpuscular Volume 88 fL (80-97); Mean Platelet Volume 8.6 fL (7.4-10.4); Nucleated Red Blood Cells % 0.1; Platelet Count 214 10^3/uL (150-450); Red Blood Count 4.54 10^6 /uL (3.70-4.87); Red Cell Distribution Width 16 % (10-15); White Blood Count 6.4 10^3/uL (3.5-10.8)
[2019-05-05 18:59] LABS: Albumin 4.7 g/dL (3.2-5.2); Albumin/Globulin Ratio 1.5 (1-3); BUN/Creatinine Ratio 12.7 (8-20); C Reactive Protein 8.26 mg/L (<8.01); Calcium 9.8 mg/dL (8.6-10.3); EGFR Non-African American 134.7 (>60); Globulin 3.2 g/dL (2-4); Total Bilirubin 0.7 mg/dL (0.2-1.0); Total Protein 7.9 g/dL (6.4-8.9)
[2019-05-05 19:01] LABS: Potassium 3.5 mmol/L (3.5-5.0)
--- NOTE | 2019-05-05 19:10 | ED ---
Progress - Progress Note Progress Note: This pt is a sign out to Dr. Jefferson Araya MD from Dr. Jefferson Seaman MD pending a consult and disposition. Course/Dx - Course Course Of Treatment: This pt is a sign out to Dr. Jefferson Araya MD from Dr. Jefferson Seaman MD pending a consult and disposition. Dr. Moise, surgery, was consulted at 1953 and stated that the pt was fit for discharge. She will be discharged home with a Dx of post operative pain. - Diagnoses Provider Diagnoses: Post-operative pain - Provider Notifications Discussed Care Of Patient With: Mark Moise Time Discussed With Above Provider: 19:54 Instructed by Provider To: Other - discharge Discharge ED - Sign-Out/Discharge Documenting (check all that apply): Patient Departure - discharge - Discharge Plan Condition: Stable Disposition: HOME Referrals: Odalys Joyce MD [Primary Care Provider] - - Attestation Statements Document Initiated by Scribe: Yes Documenting Scribe: Vinnie Wayne Provider For Whom Scribe is Documenting (Include Credential): Jefferson Araya MD Scribe Attestation: Vinnie Wright, scribed for Jefferson Araya MD on 05/05/19 at 1952. Status of Scribe Document: Ready
[2019-05-05 20:05] VITALS: BP 129/97
== END 2019-05-05 20:05 | disposition home or self-care (01) ==
LOC: ED 17:10
DX: G89.18 Other acute postprocedural pain (principal); R10.11 Right upper quadrant pain; K21.9 Gastro-esophageal reflux disease without esophagitis; E03.9 Hypothyroidism, unspecified; F32.9 Major depressive disorder, single episode, unspecified; Z79.890 Hormone replacement therapy
CPT/HCPCS: 36415; 76705; 80053; 81003; 81015; 85025; 86140; 99282

== ENCOUNTER 2019-12-01 05:52 | Inpatient (IN) ==
[2019-12-01] MEDS ORDERED: Famotidine IV 10 MG/ML 2 ml VIAL (20 mg) IV ONE (06:00)
[2019-12-01] MEDS ORDERED: Buffered Lidocaine 1% SYRIN 1 ml INTRADERM ONE ×2 (06:00→06:43)
[2019-12-01] MEDS ORDERED: Lactated Ringers 1000 ml BAG 1,000 ML IV SCH (06:00)
[2019-12-01] MEDS ORDERED: Dexamethasone IV 4 MG/ML VIAL 1 ml VIAL IV SLOW PU ONE (06:00)
[2019-12-01] MEDS ORDERED: Dexamethasone IV 4 MG/ML VIAL 1 ml VIAL ONE (06:42)
[2019-12-01] MEDS ORDERED: ceFAZolin 2 GM PREMIX 2 GM/50 ML BAG ONE (06:42)
[2019-12-01] MEDS ORDERED: Heparin 5000 UNITS/ML 1 mL VIAL ONE (06:42)
[2019-12-01] MEDS ORDERED: ceFAZolin 1 GM ADVAN 1 GM ADDV.VIAL IVPB ONE (06:42)
[2019-12-01] MEDS ORDERED: Famotidine IV 10 MG/ML 2 ml VIAL (20 mg) ONE (06:43)
[2019-12-01] MEDS ORDERED: EPHEDrine (Pressors) 50 MG/ML VIAL ONE (06:49)
[2019-12-01] MEDS ORDERED: Metoclopramide 5 MG/ML VIAL (10 mg) ONE (06:49)
[2019-12-01] MEDS ORDERED: Midazolam 5 mg/5 ml VIAL 1 mg/ml 5 ml VIAL (5 mg) ONE (06:49)
[2019-12-01] MEDS ORDERED: Lidocaine 2% PF 5 ML VIAL ONE (06:49)
[2019-12-01] MEDS ORDERED: Propofol 10 MG/ML 20 ML BTL ONE (06:49)
[2019-12-01] MEDS ORDERED: Succinylcholine 200 mg VIAL 20 mg/ml 10 ml VIAL (200 mg) ONE (06:49)
[2019-12-01] MEDS ORDERED: Ondansetron 4 mg VIAL 2 MG/ML 2 ml VIAL ONE ×2 (06:49→12:20)
[2019-12-01] MEDS ORDERED: fentaNYL 250 mcg/5 ml 50 MCG/ML 5 ml VIAL (250 MCG) ONE (06:49)
[2019-12-01] MEDS ORDERED: Sodium Chloride 0.9% 10 ML ONE (06:50)
[2019-12-01] MEDS ORDERED: Rocuronium 50 mg VIAL 10 mg/ml 5 ml VIAL (50 mg) ONE ×2 (06:52→09:44)
[2019-12-01] MEDS ORDERED: Methylene Blue 0.5 % 50 MG/10 ML AMP IV ONE (07:15)
[2019-12-01] MEDS ORDERED: Bupivacaine 0.25% SDV 30 ML ONE (07:16)
[2019-12-01] MEDS ORDERED: Ondansetron 4 mg VIAL 2 MG/ML 2 ml VIAL IV PRN ×2 (08:36→12:26)
[2019-12-01] MEDS ORDERED: Naloxone 0.4 mg VIAL 0.4 mg/ml 1 ml VIAL IV PRN (08:36)
[2019-12-01] MEDS ORDERED: DiMENhydriNATE IV 50 mg/ml 1 ml VIAL IV PUSH PRN (08:36)
[2019-12-01] MEDS ORDERED: fentaNYL 100 mcg/2 ml 50 MCG/ML VIAL ONE ×4 (09:43→13:19)
[2019-12-01 10:14] LABS: Activated Partial Thrombo Time 32.8 seconds (26.0-38.0); INR 1.2 (0.82-1.09)
[2019-12-01] MEDS ORDERED: Sugammadex 500 MG/5 ML 5 ml VIAL IV PUSH ONE (10:46)
[2019-12-01] MEDS ORDERED: HYDROmorphone 1 MG/1 ML SYRINGE ONE (12:20)
[2019-12-01] MEDS ORDERED: DiMENhydriNATE IV 50 mg/ml 1 ml VIAL ONE (12:20)
[2019-12-01] MEDS: HYDROmorphone 1 MG/1 ML SYRINGE IV PRN ×5 (12:21→12:54)
[2019-12-01] MEDS ORDERED: diPHENhydraMINE IV 50 MG/ML 1 ml VIAL (BENADRYL) SLOW PUSH PRN (12:26)
[2019-12-01] MEDS ORDERED: HYDROmorphone 1 MG/1 ML SYRINGE IV SLOW PU PRN (12:34)
[2019-12-01] MEDS: fentaNYL 100 mcg/2 ml 50 MCG/ML VIAL IV PRN ×4 (13:00→13:45)
[2019-12-01] MEDS: Lactated Ringers 1000 ml BAG 1,000 ML IV SCH ×2 (14:23→21:37)
[2019-12-01] MEDS: HYDROmorphone 0.5 MG/0.5 ML SYRINGE IV SLOW PU PRN (17:27)
[2019-12-01] MEDS ORDERED: Famotidine IV 10 MG/ML 2 ml VIAL (20 mg) IV SLOW PU SCH (21:00)
[2019-12-02] MEDS: HYDROmorphone 0.5 MG/0.5 ML SYRINGE IV SLOW PU PRN (00:09)
[2019-12-02] MEDS: Lactated Ringers 1000 ml BAG 1,000 ML IV SCH ×2 (04:12→11:04)
[2019-12-02 06:23] LABS: ABS Basophils 0.1 10^3/ul (0-0.2); ABS Lymphocytes 1.7 10^3/ul (1.0-4.8); ABS Monocytes 0.9 10^3/ul (0-0.8); ABS Neutrophils 6.7 10^3/ul (1.5-7.7); Eosinophil % 0.2 %; Hematocrit 35 % (35-47); Hemoglobin 12.1 g/dL (12.0-16.0); Lymphocyte % 17.7 %; Mean Corpuscular HGB Conc 34 g/dL (31-36); Mean Corpuscular Hemoglobin 30 pg (27-31); Mean Corpuscular Volume 88 fL (80-97); Mean Platelet Volume 8.7 fL (7.4-10.4); Platelet Count 184 10^3/uL (150-450); Red Blood Count 4.04 10^6 /uL (3.70-4.87); Red Cell Distribution Width 17 % (10-15); White Blood Count 9.3 10^3/uL (3.5-10.8)
[2019-12-02 06:29] LABS: INR 1.23 (0.82-1.09)
[2019-12-02 06:40] LABS: Albumin 3.9 g/dL (3.2-5.2); Albumin/Globulin Ratio 1.9 (1-3); Calcium 9.1 mg/dL (8.6-10.3); EGFR African American 172.5 (>60); EGFR Non-African American 142.5 (>60); Globulin 2.1 g/dL (2-4); Potassium 4.1 mmol/L (3.5-5.0); Total Bilirubin 0.9 mg/dL (0.2-1.0)
[2019-12-02] MEDS ORDERED: HYDROcodone/ACET. 7.5/325 LIQ 15 ML UDC PO PRN (08:00)
[2019-12-02] MEDS ORDERED: D5W 1/2 NS KCl 20 meq 1000 ml 1,000 ML IV SCH (13:00)
[2019-12-02 16:34] VITALS: BP 121/58
== END 2019-12-02 18:20 | disposition home or self-care (01) | DRG 403 ==
LOC: AA 05:52 → SSU 14:12
PROVIDERS: ADMIT Surgery; ATTEND Surgery